=== PATIENT | male | born 1955 | race Hispanic/Latino ===

== ENCOUNTER 2016-12-05 13:42 | Outpatient (CLI) | payer OTHER ==
[2016-12-05] MEDS ORDERED: PROVENTIL IH ONE (13:58)
== END 2016-12-05 13:43 | disposition home or self-care (01) ==
LOC: PF 13:42
PROVIDERS: ATTEND Internal Medicine
DX: I50.9 Heart failure, unspecified (principal); I10 Essential (primary) hypertension; J43.9 Emphysema, unspecified
CPT/HCPCS: 94060; 94640

== ENCOUNTER 2019-07-26 16:04 | Inpatient (IN) | payer MEDICAID, OTHER ==
[2019-07-26] MEDS ORDERED: SODIUM CHLORIDE 0.9% 1000 ML IV SOLN IV ONE (17:22)
[2019-07-26] MEDS ORDERED: MORPHINE 4 MG/1 ML INJ IV ONE (17:26)
[2019-07-26] MEDS ORDERED: ACETAMINOPHEN 325 MG TAB PO ONE (17:26)
--- NOTE | 2019-07-26 17:26 | Emergency Department Report ---
ED General Adult HPI - General Chief complaint: Chest Pain Stated complaint: CHEST PAIN Time Seen by Provider: 07/26/19 17:13 Source: patient, EMS ( EMS documentation not available at time of chart dictation ), RN notes reviewed, old records reviewed Mode of arrival: Stretcher Limitations: Physical Limitation - History of Present Illness Initial comments: This is a 64-year-old gentleman. This patient is not known to this provider previously. He reports that he typically follows at [facility]. As per review of old medical records, he has a history of hypertension, alcohol abuse, multiple ischemic cardiac workups. As per documentation from March 2018, had a cardiac catheterization at [facility], which showed no significant coronary artery disease. In addition, admitted 2017, had a thallium stress test performed at [facility], which showed no acute ischemia. Today, the patient presents to the ER with a complaint of 2-3 days central chest pain, diarrhea, "too many times to count", generalized weakness, and nontraumatic left lower extremity pain, redness and swelling. Symptoms intermittent, although left flank pain is constant, getting worse, left flank pain increases with palpation and range of motion, and it decreases with rest. It does not radiate anywhere. The chest pain as central, it does not radiate to the back, arms and neck. There is no vomiting. There is positive fever. Positive diarrhea. Positive weakness. No recent antibiotic use. No sick contacts. -: Gradual, days(s) Location: chest, left, lower extremity Severity scale (0 -10): 10 Quality: other Consistency: other Improves with: other Worsens with: other - Related Data Allergies Allergy/AdvReac Type Severity Reaction Status Date / Time No Known Allergies Allergy Unverified 05/16/16 08:15 ED Review of Systems ROS: Stated complaint: CHEST PAIN Other details as noted in HPI Constitutional: fever, malaise, weakness Eyes: denies: eye discharge ENT: denies: epistaxis Respiratory: denies: wheezing Cardiovascular: chest pain Gastrointestinal: diarrhea Musculoskeletal: arthralgia, myalgia Skin: rash Neurological: weakness ED Past Medical Hx - Past Medical History Previous Medical History?: Yes Hx Hypertension: Yes Hx Heart Attack/AMI: Yes (x5) - Social History Smoking Status: Never Smoker Substance Use Type: None ED Physical Exam - General Limitations: No Limitations, Physical Limitation General appearance: alert, in distress, obese - Head Head exam: Present: atraumatic, normocephalic - Eye Eye exam: Present: normal appearance, EOMI. Absent: nystagmus - ENT ENT exam: Present: normal exam, normal orophraynx, mucous membranes moist, normal external ear exam - Neck Neck exam: Present: normal inspection, full ROM. Absent: tenderness, meningismus - Respiratory Respiratory exam: Present: normal lung sounds bilaterally. Absent: respiratory distress - Cardiovascular Cardiovascular Exam: Present: normal rhythm, tachycardia, normal heart sounds. Absent: systolic murmur, diastolic murmur, rubs, gallop - GI/Abdominal GI/Abdominal exam: Present: soft. Absent: distended, tenderness, guarding, rebound, rigid, pulsatile mass - Rectal Rectal exam: Present: deferred - Extremities Exam Extremities exam: Present: tenderness, other (2+ pulses noted in the bilateral upper, lower extremities. There is no long bone tenderness. Musculoskeletal compartments are soft. The pelvis is stable.). Absent: normal inspection (the left lower extremity is warm, red and tender. The compartments are tender. The compartments are soft. There is no palpable cord. There is a negative Homans sign.), calf tenderness - Back Exam Back exam: Present: normal inspection. Absent: tenderness, CVA tenderness (R), CVA tenderness (L), paraspinal tenderness, vertebral tenderness - Neurological Exam Neurological exam: Present: alert, other (there is no facial droop. The tongue is midline. Extraocular movements are intact bilaterally. Patient speaking in full complete sentences. Shoulder shrug is intact bilaterally. Hearing is grossly intact bilaterally. Visual acuity intact to finger counting and color perception at a close distance. 5/5 strength 4 extremities. Sensation intact to light touch in 4 extremities.). Absent: motor sensory deficit - Psychiatric Psychiatric exam: Present: anxious - Skin Skin exam: Present: warm, rash, erythema ED Course Vital Signs 07/26/19 07/26/19 07/26/19 16:12 16:28 19:25 Temperature 100.3 F H 97.7 F 99.1 F Pulse Rate 115 H 109 H 105 H Respiratory 18 20 19 Rate Blood Pressure 149/92 Blood Pressure 161/86 125/73 [Right] O2 Sat by Pulse 95 96 97 Oximetry - Reevaluation(s) Reevaluation #1: 07/26/19 17:58 Differential diagnosis, including but not limited to: Lower extremity ce llulitis, DVT, myositis, pneumonia, acute coronary syndrome, pulmonary embolism, enteritis/colitis Assessment and plan: 64-year-old gentleman with multiple complaints Complaint #1, nontraumatic left lower extremity pain, redness and swelling. Patient febrile and tachycardic. The lower extremity appears to be infected. Exam not suggestive of myositis or compartment syndrome at this time. The patient will be treated as for the sepsis pathway, with Tylenol, fluids and clindamycin. Complaint #2, chest pain: EKG reviewed and appreciated, appears to be morphologically unchanged from rider, as per close documentation from prior visits, patient's had extensive cardiac workups for cardiac risk stratification. Unlikely to be acute coronary syndrome, however, depending on ultrasound and d-dimer, we may have to obtain nuclear medicine study to evaluate for pulmonary embolism. Complaints #3, diarrhea: Abdomen soft and benign, with no rebound, guarding or peritoneal signs. No endorsement of nausea or vomiting. Thus far, no diarrhea on my examination. If he doesn't have diarrhea, we will send it off for analysis. We will recommend admission to the medical service for sepsis secondary to presumed left lower extremities cellulitis. Reevaluation #2: 07/26/19 19:34 X-rays negative for acute disease. D-dimer markedly elevated. DVT study is negative. Laboratory studies show impressive renal insufficiency, creatinine of 3.8. Additional laboratory studies ordered. Elevated troponin reviewed and appreciated. Uncertain if secondary to renal insufficiency and type II troponin leak, or secondary to atypical presentation of acute coronary syndrome. Pat ient will be admitted. Reevaluation #3: 07/26/19 20:13 Nuclear medicine study is pending at this time. Case presented to Hospital nurse practitioner, Davis Antonio, working in conjunction with hospitalist physician, Dr. Jay Smith The patient is accepted to the medical service. Reevaluation #4: 07/26/19 21:59 Nuclear medicine study is low probability for pulmonary embolus ED Medical Decision Making - Lab Data Result diagrams: 07/26/19 18:53 07/26/19 18:53 Vital Signs 07/26/19 07/26/19 16:12 16:28 Temperature 100.3 F H 97.7 F Pulse Rate 115 H 109 H Respiratory 18 20 Rate Blood Pressure 149/92 Blood Pressure 161/86 [Right] O2 Sat by Pulse 95 96 Oximetry Vital Signs 07/26/19 07/26/19 16:12 16:28 Temperature 100.3 F H 97.7 F Pulse Rate 115 H 109 H Respiratory 18 20 Rate Blood Pressure 149/92 Blood Pressure 161/86 [Right] O2 Sat by Pulse 95 96 Oximetry Lab Results 07/26/19 07/26/19 07/26/19 Range/Units 18:53 18:53 18:53 WBC 10.8 (4.5-11.0) K/mm3 RBC 4.47 (3.65-5.03) M/mm3 Hgb 13.9 (11.8-15.2) gm/dl Hct 41.4 (35.5-45.6) % MCV 92 (84-94) fl MCH 31 (28-32) pg MCHC 34 (32-34) % RDW 13.8 (13.2-15.2) % Plt Count 115 L (140-440) K/mm3 Lymph % (Auto) 4.3 L (13.4-35.0) % Willacy % (Auto) 7.0 (0.0-7.3) % Eos % (Auto) 0.2 (0.0-4.3) % Baso % (Auto) 0.2 (0.0-1.8) % Lymph # 0.5 L (1.2-5.4) K/mm3 Willacy # 0.7 (0.0-0.8) K/mm3 Eos # 0.0 (0.0-0.4) K/mm3 Baso # 0.0 (0.0-0.1) K/mm3 Seg Neutrophils % 88.3 H (40.0-70.0) % Seg Neutrophils # 9.5 H (1.8-7.7) K/mm3 APTT 33.8 (24.2-36.6) Sec. D-Dimer 1290.92 H (0-234) ng/mlDDU Sodium 136 L (137-145) mmol/L Potassium 3.1 L (3.6-5.0) mmol/L Chloride 98.1 (98-107) mmol/L Carbon Dioxide 22 (22-30) mmol/L Anion Gap 19 mmol/L BUN 55 H (9-20) mg/dL Creatinine 3.8 H (0.8-1.5) mg/dL Estimated GFR 16 ml/min BUN/Creatinine Ratio 14 % Glucose 130 H (75-100) mg/dL Lactic Acid (0.7-2.0) mmol/L Calcium 8.5 (8.4-10.2) mg/dL Magnesium 2.00 (1.7-2.3) mg/dL Total Bilirubin 1.30 H (0.1-1.2) mg/dL AST 18 (5-40) units/L ALT 15 (7-56) units/L Alkaline Phosphatase 78 (35-129) units/L Total Creatine Kinase 198 H (55-170) units/L Troponin T 0.034 H (0.00-0.029) ng/mL Total Protein 7.2 (6.3-8.2) g/dL Albumin 3.7 L (3.9-5) g/dL Albumin/Globulin Ratio 1.1 % 07/26/19 Range/Units 18:53 WBC (4.5-11.0) K/mm3 RBC (3.65-5.03) M/mm3 Hgb (11.8-15.2) gm/dl Hct (35.5-45.6) % MCV (84-94) fl MCH (28-32) pg MCHC (32-34) % RDW (13.2-15.2) % Plt Count (140-440) K/mm3 Lymph % (Auto) (13.4-35.0) % Willacy % (Auto) (0.0-7.3) % Eos % (Auto) (0.0-4.3) % Baso % (Auto) (0.0-1.8) % Lymph # (1.2-5.4) K/mm3 Willacy # (0.0-0.8) K/mm3 Eos # (0.0-0.4) K/mm3 Baso # (0.0-0.1) K/mm3 Seg Neutrophils % (40.0-70.0) % Seg Neutrophils # (1.8-7.7) K/mm3 APTT (24.2-36.6) Sec. D-Dimer (0-234) ng/mlDDU Sodium (137-145) mmol/L Potassium (3.6-5.0) mmol/L Chloride (98-107) mmol/L Carbon Dioxide (22-30) mmol/L Anion Gap mmol/L BUN (9-20) mg/dL Creatinine (0.8-1.5) mg/dL Estimated GFR ml/min BUN/Creatinine Ratio % Glucose (75-100) mg/dL Lactic Acid 1.00 (0.7-2.0) mmol/L Calcium (8.4-10.2) mg/dL Magnesium (1.7-2.3) mg/dL Total Bilirubin (0.1-1.2) mg/dL AST (5-40) units/L ALT (7-56) units/L Alkaline Phosphatase (35-129) units/L Total Creatine Kinase (55-170) units/L Troponin T (0.00-0.029) ng/mL Total Protein (6.3-8.2) g/dL Albumin (3.9-5) g/dL Albumin/Globulin Ratio % - EKG Data -: EKG Interpreted by Me Rate: tachycardia - EKG Data 07/26/19 18:01 EKG today shows a sinus tachycardia, 113 bpm, left axis deviation, left anterior fascicular block, left ventricular hypertrophy, QTC within normal limits, premature atrial contractions, premature ventricular contractions, incomplete right bundle branch block, T-wave abnormalities lateral leads, this EKG is abnormal, the EKG is not consistent with ST elevation myocardial infarction, appears to be grossly unchanged from prior 2018, with the exception of new-onset left axis deviation, this may be secondary to lead placement, more frequent premature ventricular contractions, and premature atrial contractions. - Radiology Data Radiology results: pending, report reviewed, image reviewed interpreted by me: X-ray the chest is negative for acute disease. X-ray of the left lower extremity is negative for acute disease. Print Report Referring Physician: SONYA SIMMS Patient Name: ANDRY GURROLA Date of : 1955 Sex: Male Report Date: 2019-07-26 Report Status: Finalized Findings [facility] [address] [place] [address] Vascular Lab Report Signed Patient: ANDRY GURROLA MR#: [id number] : 1955 Acct:[id number] Age/Sex: 64 / M ADM Date: 07/26/19 Loc: ED Attending Dr: Ordering Physician: SONYA SIMMS MD Date of Service: 07/26/19 Procedure(s): VL venous duplex LE LT Accession Number(s): [id number] cc: SNOYA SIMMS MD DUPLEX DOPPLER LOWER EXTREMITY VEINS, LEFT INDICATION: left leg pain swelling. TECHNIQUE: Duplex doppler imaging was performed through the veins of the left lower extremity using venous compression and other maneuvers. COMPARISON: None available. FINDINGS: Common Femoral vein: Negative. Superficial Femoral vein: Distal superficial femoral vein is not visualized. Accounting for this, negative. Popliteal vein: Negative. Calf veins: Not visualized. Additional findings: None. IMPRESSION: 1. No sonographic evidence for DVT in the left lower extremity. Signer Name: Cale Francisco MD Signed: 07/26/2019 6:44 PM Workstation Name: [id number] Transcribed By: Dictated By: Cale Francisco MD Electronically Authenticated By: Cale Francisco MD Signed Date/Time: 07/26/19 1844 Print Report Referring Physician: SONYA SIMMS Patient Name: ANDRY GURROLA Date of : 1955 Sex: Male Report Date: 2019-07-26 Report Status: Finalized Findings [facility] [address] [place] [address] XRay Report Signed Patient: ANDRY GURROLA MR#: [id number] : 1955 Acct:[id number] Age/Sex: 64 / M ADM Date: 07/26/19 Loc: ED Attending Dr: Ordering Physician: SONYA SIMMS MD Date of Service: 07/26/19 Procedure(s): XR tibia fibula 2V LT Accession Number(s): [id number] cc: SONYA SIMMS MD Fluoro Time In Minutes: LEFT TIBIA AND FIBULA 2 VIEWS. INDICATION / CLINICAL INFORMATION: left leg pain swelling COMPARISON: None available. FINDINGS: BONES / JOINT(S): No acute fracture or subluxation. No significant arthritis. SOFT TISSUES: Soft tissue swelling. ADDITIONAL FINDINGS: None. Signer Name: Grayson Shell MD Signed: 07/26/2019 6:03 PM Workstation Name: [id number] Transcribed By: ES Dictated By: Grayson Shell MD Electronically Authenticated By: Grayson Shell MD Signed Date/Time: 07/26/19 1803 t Report Referring Physician: SONYA SIMMS Patient Name: ANDRY GURROLA Date of : 1955 Sex: Male Report Date: 2019-07-26 Report Status: Finalized Findings [facility] [address] [place] [address] XRay Report Signed Patient: ANDRY GURROLA MR#: [id number] : 1955 Acct:[id number] Age/Sex: 64 / M ADM Date: 07/26/19 Loc: ED Attending Dr: Ordering Physician: SONYA SIMMS MD Date of Service: 07/26/19 Procedure(s): XR chest 1V ap Accession Number(s): [id number] cc: SONYA SIMMS MD Fluoro Time In Minutes: CHEST 1 VIEW INDICATION: cp fever. COMPARISON: 04/18/2018. FINDINGS: Support devices: None. Heart: Within normal limits. Lungs/Pleura: No acute air space or interstitial disease. Additional findings: None. IMPRESSION: No acute abnormality. Signer Name: Grayson Shell MD Signed: 07/26/2019 6:02 PM Workstation Name: [id number] Transcribed By: RAMILA Dictated By: Grayson Shell MD Electronically Authenticated By: Grayson Shell MD Signed Date/Time: 07/26/19 180 Critical care attestation.: If time is entered above; I have spent that time in minutes in the direct care of this critically ill patient, excluding procedure time. ED Disposition Clinical Impression: Sepsis, Acute chest pain, History of diarrhea, SHAUNA (acute kidney injury), Hypokalemia Disposition: OP ADMIT IP TO THIS HOSP Is pt being admited?: Yes Does the pt Need Aspirin: Yes Condition: Good Instructions: Chest Pain (ED) Referrals: PRIMARY CARE, [Primary Care Provider] - 3-5 Days
[2019-07-26] MEDS ORDERED: CLINDAMYCIN 600 MG/50 mL 600 MG/50 ML BAG IV SCH (18:00)
[2019-07-26] MEDS ORDERED: ASPIRIN 81 MG TAB CHEW PO ONE (18:02)
--- NOTE | 2019-07-26 18:06 | XRay Report ---
CHEST 1 VIEW INDICATION: cp fever. COMPARISON: 04/18/2018. FINDINGS: Support devices: None. Heart: Within normal limits. Lungs/Pleura: No acute air space or interstitial disease. Additional findings: None. IMPRESSION: No acute abnormality. Signer Name: Grayson Shell MD Signed: 07/26/2019 6:02 PM Workstation Name: [id number]
--- NOTE | 2019-07-26 18:08 | XRay Report ---
LEFT TIBIA AND FIBULA 2 VIEWS. INDICATION / CLINICAL INFORMATION: left leg pain swelling COMPARISON: None available. FINDINGS: BONES / JOINT(S): No acute fracture or subluxation. No significant arthritis. SOFT TISSUES: Soft tissue swelling. ADDITIONAL FINDINGS: None. Signer Name: Grayson Shell MD Signed: 07/26/2019 6:03 PM Workstation Name: [id number]
--- NOTE | 2019-07-26 18:48 | Vascular Lab Report ---
DUPLEX DOPPLER LOWER EXTREMITY VEINS, LEFT INDICATION: left leg pain swelling. TECHNIQUE: Duplex doppler imaging was performed through the veins of the left lower extremity using venous compr ession and other maneuvers. COMPARISON: None available. FINDINGS: Common Femoral vein: Negative. Superficial Femoral vein: Distal superficial femoral vein is not visualized. Accounting for this, neg ative. Popliteal vein: Negative. Calf veins: Not visualized. Additional findings: None. IMPRESSION: 1. No sonographic evidence for DVT in the left lower extremity. Signer Name: Cale Francisco MD Signed: 07/26/2019 6:44 PM Workstation Name: [id number]
[2019-07-26 19:10] LABS: Basophils % (Auto) 0.2 % (0.0-1.8); Eosinophils % (Auto) 0.2 % (0.0-4.3); Hematocrit 41.4 % (35.5-45.6); Hemoglobin 13.9 gm/dl (11.8-15.2); Lymphocytes # (Auto) 0.5 K/mm3 (1.2-5.4); Lymphocytes % (Auto) 4.3 % (13.4-35.0); Mean Corpuscular HGB Conc 34 % (32-34); Mean Corpuscular Volume 92 fl (84-94); Monocytes # (Auto) 0.7 K/mm3 (0.0-0.8); Platelet Count 115 K/mm3 (140-440); Red Blood Count 4.47 M/mm3 (3.65-5.03); Red Cell Distribution Width 13.8 % (13.2-15.2)
[2019-07-26 19:24] LABS: Partial Thromboplastin Time 33.8 Sec. (24.2-36.6)
[2019-07-26 19:33] LABS: Albumin 3.7 g/dL (3.9-5); Calcium 8.5 mg/dL (8.4-10.2)
[2019-07-26] MEDS ORDERED: POTASSIUM CHLORIDE ER 20 MEQ TAB PO ONE (19:33)
[2019-07-26 19:49] LABS: INR 1.12 (0.87-1.13)
[2019-07-26 19:50] LABS: Bilirubin,Urine NEG (Negative); Blood,Urine MOD (Negative); Color,Urine Yellow (Yellow); Mucus,Urine FEW /HPF
[2019-07-26 20:25] LABS: Osmolality,Urine 359 Mosm/kg
[2019-07-26] MEDS ORDERED: traMADol 50 MG TAB PO ONE (20:28)
[2019-07-26 20:36] LABS: Amphetamine Screen,Urine PRESUMPTIVE NEGATIVE; Benzodiazepines Screen,Urine PRESUMPTIVE NEGATIVE; Cannabinoid Screen,Urine PRESUMPTIVE NEGATIVE; Cocaine Screen,Urine PRESUMPTIVE NEGATIVE; Creatinine,Urine 167.4 mg/dL (0.1-20.0); Methadone Screen,Urine PRESUMPTIVE NEGATIVE; Opiate Screen,Urine PRESUMPTIVE NEGATIVE
[2019-07-26 20:43] LABS: Chol/HDL Ratio 4.51 %
[2019-07-26] MEDS ORDERED: ONDANSETRON 4 MG/2 ML INJ IV PRN (20:43)
[2019-07-26] MEDS ORDERED: MORPHINE 2 MG/1 ML INJ IV PRN (20:50)
[2019-07-26] MEDS ORDERED: SODIUM CHLORIDE 0.9% 1000 ML 1,000 ML IV SCH (21:00)
[2019-07-26] MEDS ORDERED: HEPARIN 10,000 UNITS/10 ML VIAL IV ONE ×2 (21:42→22:00)
--- NOTE | 2019-07-26 21:51 | Nuclear Medicine Report ---
NUCLEAR MEDICINE VENTILATION/PERFUSION LUNG SCAN INDICATION: Chest pain. Elevated d-dimer. TECHNIQUE: 14 mCi of Xe-133 were given by inhalation. 5 mCi of Tc-99m MAA were given by IV. COMPARISON: Chest radiograph performed today. FINDINGS: VENTILATION: No significant ventilation defects. PERFUSION: No significant perfusion defects. ADDITIONAL FINDINGS: None. IMPRESSION: Low probability for pulmonary embolism. Signer Name: Luis Douglas MD Signed: 07/26/2019 9:46 PM Workstation Name: [id number]
[2019-07-26] MEDS ORDERED: HEPARIN/ 0.45% NACL DRIP 25,000 UNIT/500 ML BAG IV SCH (22:00)
[2019-07-26] MEDS ORDERED: HEPARIN 5,000 UNIT/1 ML VIAL SUB-Q SCH (22:00)
[2019-07-26] MEDS ORDERED: VANCOMYCIN PHARMACY TO DOSE IV SCH (22:00)
[2019-07-26] MEDS ORDERED: DOCUSATE SODIUM 100 MG CAP ONE (22:21)
[2019-07-26] MEDS ORDERED: SODIUM CHLORIDE 0.9% 1000 ML 1,000 ML ONE ×2 (22:23→22:34)
[2019-07-26] MEDS: DOCUSATE SODIUM 100 MG CAP PO SCH (22:28)
[2019-07-26] MEDS ORDERED: VANCOMYCIN 2,000 MG in SODIUM CHLORIDE 0.9% 500 ML 500 ML IV ONE (22:30)
[2019-07-26] MEDS ORDERED: HYDROmorphone 1 MG/1 ML INJ ONE (22:35)
[2019-07-26] MEDS: HYDROmorphone 1 MG/1 ML INJ IV PRN (22:54)
[2019-07-26] MEDS: POTASSIUM CHLORIDE 10 MEQ 10 MEQ/100 ML BAG IV SCH (22:54)
[2019-07-26] MEDS: SODIUM CHLORIDE 0.9% 1000 ML 1,000 ML IV SCH (23:31)
[2019-07-27] MEDS: POTASSIUM CHLORIDE 10 MEQ 10 MEQ/100 ML BAG IV SCH (00:22)
[2019-07-27] MEDS: AMPICILLIN/SULBACTA 1.5GM/50ML 1.5 GM/50 ML BAG IV SCH ×3 (01:54→12:40)
[2019-07-27] MEDS: HYDROmorphone 1 MG/1 ML INJ IV PRN ×6 (02:10→21:09)
[2019-07-27 03:11] LABS: Basophils % (Auto) 0.1 % (0.0-1.8); Hematocrit 39.1 % (35.5-45.6); Lymphocytes # (Auto) 0.9 K/mm3 (1.2-5.4); Lymphocytes % (Auto) 5.5 % (13.4-35.0); Mean Corpuscular HGB Conc 33 % (32-34); Mean Corpuscular Volume 92 fl (84-94); Monocytes # (Auto) 1.4 K/mm3 (0.0-0.8); Monocytes % (Auto) 8.4 % (0.0-7.3); Platelet Count 120 K/mm3 (140-440); Red Blood Count 4.26 M/mm3 (3.65-5.03); Red Cell Distribution Width 13.9 % (13.2-15.2)
[2019-07-27 03:27] LABS: INR 1.15 (0.87-1.13)
[2019-07-27 03:28] LABS: Partial Thromboplastin Time 38.3 Sec. (24.2-36.6)
[2019-07-27 03:34] LABS: Creatine Kinase MB 4.6 ng/mL (0.0-4.0)
--- NOTE | 2019-07-27 06:13 | History and Physical Report ---
CHIEF COMPLAINT: Chest pain. Other complaint include pain and swelling in the left lower extremity. HISTORY OF PRESENT ILLNESS: The patient is a 64-year-old male who presented to the Emergency Room complaining about chest pain. The patient also complained about pain and swelling in the left lower extremity and generalized weakness. The patient described the chest pain as intermittent and said that the pain is located in the retrosternal area, does not radiate and is associated with nausea, but no vomiting. Pain is also associated with shortness of breath, but no diaphoresis and no dizziness. The patient said that swelling in the left leg started over the last 24-48 hours and denied any history of trauma and said that he knows that he scratches his skin most times, but denied any history of insect bite. Also, the patient denied history of fever or chills. PAST MEDICAL HISTORY: Pertinent for hypertension. Also, the patient has past medical history of coronary artery disease, status post myocardial infarction. PAST SURGICAL HISTORY: Unremarkable. FAMILY HISTORY: Noncontributory. SOCIAL HISTORY: The patient does not smoke, does not drink alcohol and does not use illicit drugs. MEDICATIONS: The patient's home medications are not known. ALLERGIES: There are no known drug allergies. REVIEW OF SYSTEMS: CONSTITUTIONAL: There is a history of fever and chills, but no orthopnea. HEENT: There is no headache or sore throat. CARDIOVASCULAR SYSTEM: Chest pain is present. No orthopnea. RESPIRATORY SYSTEM: There is shortness of breath and no cough. GASTROINTESTINAL SYSTEM: There is nausea, but no vomiting, no abdominal pain, diarrhea or constipation. NEUROLOGICAL SYSTEM: There is no numbness, no dizziness, no altered mental status. MUSCULOSKELETAL SYSTEM: There is pain and swelling in the left leg. DERMATOLOGICAL SYSTEM: There is redness of the left leg, but no rashes. GENITOURINARY SYSTEM: There is no dysuria, hematuria, or flank pain. Rest of system review is normal. PHYSICAL EXAMINATION: GENERAL: At the time of exam, the patient was found to be alert, oriented x 3 and not in acute distress. VITAL SIGNS: Shows temperature of 100.3 degrees Fahrenheit, pulse of 115, respirations 18, blood pressure 149/92, O2 sat of 95% on room air. HEENT: Showed pupils to be equal, round, reactive to light and accommodating. Extraocular muscles are intact. NECK: Supple with no JVD or carotid bruit. CARDIOVASCULAR SYSTEM: Showed normal first and second heart sounds with no gallops or murmurs. RESPIRATORY SYSTEM: Show good air entry on both sides of the lungs with no abnormal breath sounds. GASTROINTESTINAL SYSTEM: Show abdomen to be full, soft, nontender with no organomegaly or rigidity. NEUROLOGIC: Shows no focal deficit. MUSCULOSKELETAL: Shows swelling in the left leg, which is tender to touch with normal neurovascular function. DERMATOLOGICAL SYSTEM: Shows redness of the left leg with no skin rashes. GENITOURINARY: Shows no costovertebral angle tenderness. PERTINENT LABORATORY AND IMAGING STUDIES: The patient had venous Doppler ultrasound of the left lower extremity that shows no evidence of DVT. Also, the patient had chest x-ray done that came back showing no acute cardiopulmonary lesion. The patient also had x-ray of the left tibia and fibula done that shows no acute fracture or subluxation that shows soft tissue swelling. The patient also had pulmonary perfusion test done because of elevated D-dimer that shows low probability for pulmonary embolism. Lab results, the patient's CBC showed normal white count, normal hemoglobin and normal hematocrit. The patient has low platelet count of 115. The patient's CBC differential showing elevated segmented neutrophil count of 88.3%. The patient's coagulation studies show high D-dimer of 1290. The patient's chemistry showed low sodium level of 136 with low potassium level of 3.1, elevated BUN of 55 and elevated creatinine of 3.8 and patient's total bilirubin is slightly elevated with a value of 1.3 and patient's troponin level is high with a value of 0.034. Rest of chemistry was unremarkable. The patient's urinalysis showed yellow, slightly cloudy urine with elevated urine WBC of 9 and negative urine leukocyte esterase with no bacteria found. The patient's toxicology screen was unremarkable. DIAGNOSES: 1. Non-ST elevation myocardial infarction. 2. Sepsis. 3. Left lower extremity cellulitis. 4. Acute kidney injury. PLAN OF CARE: 1. The patient will be admitted to telemetry. 2. The patient will have serial cardiac enzymes involving troponin, total CK, and CK-MB checked every 6 hours x 2 more levels. 3. The patient will have Cardiology consult with Dr. Chuy Mcclure back because of NSTEMI. 4. The patient will have Nephrology consult with Dr. Renteria for management of acute kidney injury. 5. The patient will have Infectious Disease consult with Dr. Latham for management of sepsis due to cellulitis of the lower extremity. 6. The patient will be on IV normal saline running at 125 mL an hour, having received some fluid boluses in the Emergency Room. 7. The patient will be on IV Unasyn 1.5 g q.6 hours. 8. The patient will be on IV vancomycin with pharmacy to dose for management of cellulitis and sepsis. 9. The patient will be on IV morphine 2 mg every 4 hours as needed for pain and IV Zofran 4 mg every 8 hours as needed for nausea and vomiting. 10. The patient will be on IV heparin per protocol for NSTEMI. 11. The patient will be on nitro paste half inch to anterior chest wall q.i.d. and will be on sublingual nitroglycerin 0.4 mg every 5 minutes as needed for breakthrough chest pain. 12. The patient will be on aspirin 325 mg by mouth daily and will be on Tylenol 650 mg by mouth every 4 hours for fever and headache. 13. The patient will be on oxygen by nasal cannula at 2 liters per minute. JOB# [id number] OCN/NTS
[2019-07-27 07:44] LABS: Creatine Kinase MB 3.5 ng/mL (0.0-4.0)
[2019-07-27] MEDS ORDERED: HEPARIN 10,000 UNITS/10 ML VIAL IV ONE (08:30)
[2019-07-27] MEDS: DOCUSATE SODIUM 100 MG CAP PO SCH (11:36)
[2019-07-27] MEDS: ASPIRIN 325 MG TAB PO SCH (11:36)
--- NOTE | 2019-07-27 12:04 | Progress Note ---
Assessment and Plan - Patient Problems (1) Cellulitis and abscess of left leg Current Visit: Yes Status: Acute Plan to address problem: was cellulitis abscess left leg tender painful red hot swollen. Follow blood culture data continue local wound care and IV antibiotics with Unasyn. Her [id number] pain control. (2) SHAUNA (acute kidney injury) Current Visit: Yes Status: Acute Plan to address problem: Acute kidney injury appears to be new. May be acute on chronic insufficiency. Patient stated he had some issues with kidney quite some time ago. Could be prerenal azotemia. Nephrology consult pending. Gentle hydration for now. (3) Acute chest pain Current Visit: Yes Status: Acute Plan to address problem: Extensive workup for chest pain. Patient states he did not have any chest pain. No further cardiac workup indicated. (4) History of diarrhea Current Visit: Yes Status: Acute Plan to address problem: We'll check stool for C. difficile. (5) Hypokalemia Current Visit: Yes Status: Acute Plan to address problem: correct as required History Interval history: Patient this a.m. presents with left lower lobe swelling. And acute renal failure on physical exam. is 64 years old originally presented with chest pain has had an extensive cardiac workup including April 16 normal catheterization and also recent normal stress test. Patient also had a remarkable CTA here. Patient had ultrasound negative for DVT chest x-ray unremarkable Legatrin on remarkable CTA unremarkable. Patient currently not complaining of any chest pain at all. Stated he did not have chest pain overnight is mostly leg pain. Patient does have extensive left leg cellulitis. Hospital course also complicated by diarrhea. Hospitalist Physical - Constitutional Vitals: Temp Pulse Resp BP Pulse Ox 99.6 F 95 H 18 176/81 96 07/27/19 04:38 07/27/19 04:36 07/27/19 07:22 07/27/19 04:36 07/27/19 09:48 General appearance: Present: no acute distress - EENT Eyes: Present: PERRL, EOM intact ENT: hearing intact, clear oral mucosa, dentition normal - Neck Neck: Present: supple, normal ROM - Respiratory Respiratory effort: normal Respiratory: bilateral: CTA - Cardiovascular Rhythm: regular - Extremities Extremities: no ischemia, pulses intact, pulses symmetrical Extremity abnormal: erythema, tenderness, other (left extremity edematous with dry skin cellulitic tender to touch edema and erythema.) Peripheral Pulses: within normal limits - Abdominal General gastrointestinal: soft, non-tender, non-distended, normal bowel sounds, no hepatomegaly, no splenomegaly - Integumentary Integumentary: Present: clear, warm, dry - Psychiatric Psychiatric: appropriate mood/affect, intact judgment & insight, memory intact - Neurologic Neurologic: CNII-XII intact, moves all extremities Results - Labs CBC & Chem 7: 07/27/19 02:28 07/27/19 02:28 Labs: Laboratory Last Values WBC 16.1 K/mm3 (4.5-11.0) H 07/27/19 02: RBC 4.26 M/mm3 (3.65-5.03) 07/27/19 02: Hgb 13.0 gm/dl (11.8-15.2) 07/27/19 02: Hct 39.1 % (35.5-45.6) 07/27/19 02: MCV 92 fl (84-94) 07/27/19 02: MCH 31 pg (28-32) 07/27/19 02: MCHC 33 % (32-34) 07/27/19 02: RDW 13.9 % (13.2-15.2) 07/27/19 02: Plt Count 120 K/mm3 (140-440) L 07/27/19 02: Lymph % (Auto) 5.5 % (13.4-35.0) L 07/27/19 02: [place] % (Auto) 8.4 % (0.0-7.3) H 07/27/19 02: Eos % (Auto) 0.0 % (0.0-4.3) 07/27/19 02: Baso % (Auto) 0.1 % (0.0-1.8) 07/27/19 02: Lymph # 0.9 K/mm3 (1.2-5.4) L 07/27/19 02: [place]eman # 1.4 K/mm3 (0.0-0.8) H 07/27/19 02:28 Eos # 0.0 K/mm3 (0.0-0.4) 07/27/19 02:28 Baso # 0.0 K/mm3 (0.0-0.1) 07/27/19 02:28 Seg Neutrophils % 86.0 % (40.0-70.0) H 07/27/19 02:28 Seg Neutrophils # 13.8 K/mm3 (1.8-7.7) H 07/27/19 02:28 PT 14.4 Sec. (12.2-14.9) 07/27/19 02:28 INR 1.15 (0.87-1.13) H 07/27/19 02:28 APTT 38.3 Sec. (24.2-36.6) H 07/27/19 02:28 1290.92 ng/mlDDU (0-234) H 07/26/19 18:53 Heparin Anti-Xa Level < 0.10 U.I./ml (0.3-0.7) L 07/27/19 06:35 Sodium 136 mmol/L (137-145) L 07/27/19 02:28 Potassium 3.6 mmol/L (3.6-5.0) 07/27/19 02:28 Chloride 99.2 mmol/L (98-107) 07/27/19 02:28 Carbon Dioxide 22 mmol/L (22-30) 07/27/19 02:28 18 mmol/L 07/27/19 02:28 BUN 51 mg/dL (9-20) H 07/27/19 02:28 3.5 mg/dL (0.8-1.5) H 07/27/19 02:28 Estimated GFR 18 ml/min 07/27/19 02:28 15 % 07/27/19 02:28 Glucose 128 mg/dL (75-100) H 07/27/19 02:28 Lactic Acid 0.70 mmol/L (0.7-2.0) 07/26/19 19:51 11.0 mg/dL (3.5-7.6) H 07/26/19 19:40 Calcium 8.0 mg/dL (8.4-10.2) L 07/27/19 02:28 Magnesium 2.00 mg/dL (1.7-2.3) 07/26/19 18:53 1.30 mg/dL (0.1-1.2) H 07/26/19 18:53 AST 18 units/L (5-40) 07/26/19 18:53 ALT 15 units/L (7-56) 07/26/19 18:53 78 units/L (35-129) 07/26/19 18:53 166 units/L (55-170) 07/27/19 06:35 CK-MB (CK-2) 3.5 ng/mL (0.0-4.0) 07/27/19 06:35 CK-MB (CK-2) Rel Index 2.1 (0-4) 07/27/19 06:35 0.021 ng/mL (0.00-0.029) 07/27/19 06:35 7.2 g/dL (6.3-8.2) 07/26/19 18:53 3.7 g/dL (3.9-5) L 07/26/19 18:53 1.1 % 07/26/19 18:53 Triglycerides 192 mg/dL (2-149) H 07/26/19 18:53 Cholesterol 122 mg/dL (50-199) 07/26/19 18:53 48 mg/dL (50-130) L 07/26/19 18:53 27 mg/dL (40-59) L 07/26/19 18:53 4.51 % 07/26/19 18:53 TSH 0.529 mlU/mL (0.270-4.200) 07/26/19 19:40 Yellow (Yellow) 07/26/19 19:20 Slightly-cloudy (Clear) 07/26/19 19:20 5.0 (5.0-7.0) 07/26/19 19:20 Ur Specific [place] 1.013 (1.003-1.030) 07/26/19 19:20 100 mg/dl mg/dL (Negative) 07/26/19 19:20 Neg mg/dL (Negative) 07/26/19 19:20 Neg mg/dL (Negative) 07/26/19 19:20 Mod (Negative) 07/26/19 19:20 Neg (Negative) 07/26/19 19:20 Neg (Negative) 07/26/19 19:20 2.0 mg/dL (<2.0) 07/26/19 19:20 Ur Leukocyte Esterase Neg (Negative) 07/26/19 19:20 9.0 /HPF (0.0-6.0) H 07/26/19 19:20 1.0 /HPF (0.0-6.0) 07/26/19 19:20 U Epithel Cells (Auto) < 1.0 /HPF (0-13.0) 07/26/19 19:20 Few /HPF 07/26/19 19:20 359 Mosm/kg 07/26/19 19:34 167.4 mg/dL (0.1-20.0) H 07/26/19 19:34 38 mmol/L 07/26/19 19:34 Presumptive negative 07/26/19 19:34 Presumptive negative 07/26/19 19:34 Ur Barbiturates Screen Presumptive negative 07/26/19 19:34 Ur Phencyclidine Scrn Presumptive negative 07/26/19 19:34 Ur Amphetamines Screen Presumptive negative 07/26/19 19:34 U Benzodiazepines Scrn Presumptive negative 07/26/19 19:34 Presumptive negative 07/26/19 19:34 U Marijuana (THC) Screen Presumptive negative 07/26/19 19:34 Disclamer 07/26/19 19:34 - Imaging and Cardiology EKG: report reviewed Chest x-ray: report reviewed CT scan - chest: report reviewed Active Medications - Current Medications Current Medications: Generic Name Dose Route Start Last Admin Trade Name Freq PRN Reason Stop Dose Admin Acetaminophen 650 mg 07/26/19 20:43 Tylenol PO Q4H PRN Pain MILD(1-3)/Fever >100.5/FLOOD Aspirin 325 mg 07/27/19 10:00 07/27/19 11:36 Aspirin PO 325 mg QDAY ELSA Administration Docusate Sodium 100 mg 07/26/19 22:00 07/27/19 11:36 Colace PO 100 mg BID ELSA Administration Hydromorphone HCl 0.5 mg 07/26/19 20:50 07/27/19 11:36 Dilaudid IV 0.5 mg Q3H PRN Administration Pain , Severe (7-10) Ampicillin Sodium/Sulbactam Sodium 1.5 gm in 50 mls @ 100 mls/hr 07/27/19 00:00 07/27/19 06:03 Unasyn/Ns 1.5 Gm/50 Ml IV 100 mls/hr Q6HR ELSA Administration Protocol Heparin Sodium/Sodium Chloride 25,000 unit in 500 mls @ 20 mls/hr 07/26/19 22:00 07/27/19 07:57 Heparin/ 0.45% Nacl-25,000 Unit/500 Ml IV 1,350 units/hr TITRATE ELSA 27 mls/hr Titration Protocol 1,000 UNITS/HR Sodium Chloride 1,000 mls @ 125 mls/hr 07/26/19 22:00 07/26/19 23:31 Nacl 0.9% 1000 Ml IV 125 mls/hr DIRECT ELSA Administration Nitroglycerin 0.5 inch 07/27/19 06:00 Nitro-Bid 2% TP QIDNTG ELSA Protocol Ondansetron HCl 4 mg 07/26/19 20:43 Zofran IV Q6H PRN Nausea And Vomiting Sodium Chloride 10 ml 07/26/19 22:00 07/27/19 11:36 Sodium Chloride Flush Syringe 10 Ml IV 10 ml BID ELSA Administration Sodium Chloride 10 ml 07/26/19 20:43 Sodium Chloride Flush Syringe 10 Ml IV PRN PRN LINE FLUSH
[2019-07-27] MEDS: NITROGLYCERIN 2% OINT 1 GM TP SCH ×3 (12:23→17:07)
--- NOTE | 2019-07-27 13:31 | Consultation ---
CARDIOLOGY EVALUATION REFERRING PHYSICIAN: Dr. Randy Ochoa MD. REASON FOR EVALUATION: Chest pain. HISTORY OF PRESENT ILLNESS: The patient is a 64-year-old gentleman who came to the Emergency Room with multiple complaints. Even though he complained about chest discomfort when in the Emergency Room, at present his main complaint is left leg pain and swelling as well as headache. Chest pain itself is described as a central chest discomfort, very nondescript and unrelated to any activity. This has been bothering him for the last couple of days. The patient has no previous myocardial infarction or significant coronary artery disease. He had a cardiac catheterization done in 03/2018 and had no significant coronary artery disease. Subsequently, he had a nuclear stress test at [facility], again showed no ischemia. His chest pain itself is not typical. The patient is known to have a longstanding history of hypertension, alcohol abuse and ?pain medication use. REVIEW OF SYSTEMS: HEAD, EYES, EARS, NOSE, AND THROAT: The patient complains about headaches. ENDOCRINE: No history of diabetes. GASTROINTESTINAL: No abdominal pain, nausea, vomiting today; however, he apparently had diarrhea recently. GENITOURINARY: No symptoms. LOCOMOTOR: Left lower extremity pain and swelling. CENTRAL NERVOUS SYSTEM: No history of cerebrovascular accident, convulsive disorder, or syncope. HEME/ONC: No symptoms. PERSONAL HISTORY: Nonsmoker and drinks alcohol fairly regularly. The emergency record documents history of myocardial infarction; however, the patient is not sure if he ever had 1 and as mentioned earlier, cardiac catheterization about a year ago reveals normal coronary anatomy. PHYSICAL EXAMINATION: GENERAL: Adult overweight gentleman, in no acute distress. HEAD, EYES, EARS, NOSE AND THROAT: Unremarkable. NECK: Supple. No thyromegaly. Both carotids are palpable and equal. No bruits. CHEST: Symmetrical. LUNGS: Essentially clear. HEART: S1 and S2 are heard well. No S3. ABDOMEN: Obese, nontender, no hepatosplenomegaly. EXTREMITIES: Swelling and tenderness of the left lateral leg is noted. Right leg appears to be normal. IMAGING: EKG shows sinus rhythm with occasional PVCs, left ventricular hypertrophy with associated ST-T abnormalities. LABORATORY DATA: WBC 16.1, hemoglobin 13, hematocrit 39.1. INR 1.15. Sodium 136, potassium 3.6, blood sugar 128, BUN 51, creatinine 3.5, magnesium level is normal. Bilirubin 1.3. Troponin 0.034, 0.031, and 0.021. Total cholesterol 122, LDL 48, HDL 27. TSH 0.529. IMPRESSION: 1. Chest pain, somewhat atypical with mild elevation of the troponin; however, the patient had cardiac workup within the year, including a nuclear stress test, which was negative and cardiac catheterization that showed normal coronary anatomy. EKG shows no acute abnormalities. PLAN: 1. At this time is plan to continue monitoring and following with you. 2. Cellulitis of the left leg. The patient is currently on intravenous antibiotics. 3. Hypertension. 4. Renal failure. 5. Abnormal D-dimer and negative nuclear study for pulmonary embolism. The patient is seen for cardiac evaluation. In view of his recent multiple testings and as the patient himself is not having significant pain at this time and his main concern seems to be getting pain medications for his left leg pain. The patient appears to have cellulitis and this is being managed with intravenous antibiotics. The patient will be followed closely along with you. Thank you, Dr. Ochoa for allowing me to participate in the care of this gentleman. JOB# [id number] SERA/NTS MTDD
--- NOTE | 2019-07-27 14:25 | Consultation ---
History of Present Illness - Reason for Consult Consult date: 07/27/19 acute renal failure Requesting physician: JENN MENDES - History of Present Illness This is a 64 yo AAM with past medical history of hypertension, CAD who presents to [facility] ER with complaints, severe pain and swelling at LLE, along with generalized weakness. pt was found to have LLE cellulitis, and admitted for IV ABXs treatment. Labs showed elevated BUN/Cr at 55/3.8mg/dl for which renal consult is requested. Pt denies fever, chills, n/v/d, CP, palpitations, dysuria, abd pain, diarrhea, denies recent trauma, insect bites. Pt is not aware of any previous renal disease, however reports chronic NSAIDs use, was taking ibuprofen on a daily basis for the last year. Past History Past Medical History: CAD, hypertension Past Surgical History: No surgical history Social history: no significant social history. denies: smoking, alcohol abuse, prescription drug abuse, IV drug use Family history: no significant family history Medications and Allergies Allergies Allergy/AdvReac Type Severity Reaction Status Date / Time No Known Allergies Allergy Unverified 05/16/ 08:15 Active Meds: Active Medications Acetaminophen (Tylenol) 650 mg PO Q4H PRN PRN Reason: Pain MILD(1-3)/Fever >100.5/FLOOD Aspirin (Aspirin) 325 mg PO QDAY [facility] Last Admin: 07/27/19 11:36 Dose: 325 mg Documented by: Hydromorphone HCl (Dilaudid) 0.5 mg IV Q3H PRN PRN Reason: Pain , Severe (7-10) Last Admin: 07/27/19 11:36 Dose: 0.5 mg Documented by: Ampicillin Sodium/Sulbactam Sodium (Unasyn/Ns 1.5 Gm/50 Ml) 1.5 gm in 50 mls @ 100 mls/hr IV Q6HR [facility]; Protocol Last Admin: 07/27/19 12:40 Dose: 100 mls/hr Documented by: Sodium Chloride (Nacl 0.9% 1000 Ml) 1,000 mls @ 125 mls/hr IV DIRECT ELSA Last Admin: 07/26/19 23:31 Dose: 125 mls/hr Documented by: Nitroglycerin (Nitro-Bid 2%) 0.5 inch TP QIDNTG [facility]; Protocol Last Admin: 07/27/19 13:45 Dose: Not Given Documented by: Ondansetron HCl (Zofran) 4 mg IV Q6H PRN PRN Reason: Nausea And Vomiting Sodium Chloride (Sodium Chloride Flush Syringe 10 Ml) 10 ml IV BID ELSA Last Admin: 07/27/19 11:36 Dose: 10 ml Documented by: Sodium Chloride (Sodium Chloride Flush Syringe 10 Ml) 10 ml IV PRN PRN PRN Reason: LINE FLUSH Review of Systems All systems: negative Constitutional: weakness Musculoskeletal: other (LLE pain, swelling, redness ) Integumentary: redness Exam - Vital Signs Vital signs: Vital Signs Temp Pulse Resp BP Pulse Ox 100.3 F H 115 H 18 149/92 95 07/26/19 16:12 07/26/19 16:12 07/26/19 16:12 07/26/19 16:12 07/26/19 16:12 - General Appearance General appearance: well-developed, well-nourished, appears stated age EENT: ATNC, PERRL, mucous membranes moist Neck: Present: neck supple Respiratory: Clear to Ascultation Heart: regular, S1S2 Gastrointestinal: Present: normoactive bowel sounds Integumentary: no rash, other (+ LLE edema ) Neurologic: no focal deficit, alert and oriented x3, strength 5/5, CN 3-12 int act Psychiatric: mood/affect appropriate, cooperative Results - Lab Results 07/27/19 02:28 07/27/19 02:28 Most recent lab results Calcium 8.0 mg/dL (8.4-10.2) L 07/27/19 02:28 Magnesium 2.00 mg/dL (1.7-2.3) 07/26/19 18:53 167.4 mg/dL (0.1-20.0) H 07/26/19 19:34 38 mmol/L 07/26/19 19:34 Assessment and Plan - Patient Problems (1) SHAUNA (acute kidney injury) Current Visit: Yes Status: Acute Plan to address problem: SHAUNA is most likely secondary to pre-renal azotemia in the setting of LLE cellulitis. FeNA < 1%. cont IV NS at 125ml/hr. check renal US to rule out obstructive nephropathy and other structural disease, to assess kidney size. Avoid further nephrotoxins, NSAIDs, IV contrast. Will monitor lytes/renal parameters closely and make further recommendations. (2) Cellulitis and abscess of left leg Current Visit: Yes Status: Acute Plan to address problem: cont IV ABXs with vanco/ampicillin, dose for current eGFR < 20mls/min (3) Hypokalemia Current Visit: Yes Status: Acute Plan to address problem: K supplementation with KDur (4) Essential (primary) hypertension Current Visit: Yes Status: Acute Plan to address problem: will start amlodipine 5mg po qd for BP control
[2019-07-27] MEDS: amLODIPine 5 MG TAB PO SCH (14:50)
[2019-07-27] MEDS: SODIUM CHLORIDE 0.9% 1000 ML 1,000 ML IV SCH (14:50)
--- NOTE | 2019-07-27 15:04 | Consultation ---
History of Present Illness - Reason for Consult Consult date: 07/27/19 - History of Present Illness 64 yo M PMhx HTN, EtOH abuse admitted with chest pain. he notes the symptoms began 2-3 days prior to admission, as well as diarrhea. He has had these episodes of chest pain an innumerable amount of times, and has been worked up extensively with no cause found. He also complains of LLE pain, redness, and swelling. he denies any local trauma to the leg. he also complains of worsening L flank pain which is getting progressively worse. Afebrile throughout admission with an elevated white count of 16. he is tachycardic. He is receiving unasyn. Blood and urine cultures are NGTD. Imaging personally reviewed: CXR: No abnormality Tib/fib: No abnormality V/Q scan: Low prob Echo: no veg. Review of Systems: Bold if positive, otherwise negative General: fevers, chills, rigors HEENT: visual disturbance, diplopia, eye pain Respiratory: cough, sputum, hemoptysis, shortness of breath Cardiovascular: chest pain, syncope Gastrointestinal: nausea, vomiting, diarrhea, abdominal pain Genitourinary: dysuria, hematuria, flank pain Musculoskeletal: neck pain, back pain, joint pain, edema Neurologic: headaches, seizures Hematologic: easy bruising or bleeding Endocrine: night sweats, acute weight loss Skin: rash, jaundice, redness Psychiatric: suicidal, homicidal ideation Past History Past Medical History: CAD, hypertension Past Surgical History: No surgical history Social history: no significant social history. denies: smoking, alcohol abuse, prescription drug abuse, IV drug use Family history: hypertension Medications and Allergies Allergies Allergy/AdvReac Type Severity Reaction Status Date / Time No Known Allergies Allergy Unverified 05/16/16 08:15 Active Meds: Active Medications Acetaminophen (Tylenol) 650 mg PO Q4H PRN PRN Reason: Pain MILD(1-3)/Fever >100.5/FLOOD Amlodipine Besylate (Norvasc) 5 mg PO QDAY [facility] Last Admin: 07/27/19 14:50 Dose: 5 mg Documented by: Aspirin (Aspirin) 325 mg PO QDAY [facility] Last Admin: 07/27/19 11:36 Dose: 325 mg Documented by: Hydromorphone HCl (Dilaudid) 0.5 mg IV Q3H PRN PRN Reason: Pain , Severe (7-10) Last Admin: 07/27/19 14:35 Dose: 0.5 mg Documented by: Ampicillin Sodium/Sulbactam Sodium (Unasyn/Ns 1.5 Gm/50 Ml) 1.5 gm in 50 mls @ 100 mls/hr IV Q6HR [facility]; Protocol Last Admin: 07/27/19 12:40 Dose: 100 mls/hr Documented by: Sodium Chloride (Nacl 0.9% 1000 Ml) 1,000 mls @ 125 mls/hr IV DIRECT [facility]SA Last Admin: 07/27/19 14:50 Dose: 125 mls/hr Documented by: Nitroglycerin (Nitro-Bid 2%) 0.5 inch TP QIDNTG [facility]; Protocol Last Admin: 07/27/19 13:45 Dose: Not Given Documented by: Ondansetron HCl (Zofran) 4 mg IV Q6H PRN PRN Reason: Nausea And Vomiting Sodium Chloride (Sodium Chloride Flush Syringe 10 Ml) 10 ml IV BID [facility] Last Admin: 07/27/19 11:36 Dose: 10 ml Documented by: Sodium Chloride (Sodium Chloride Flush Syringe 10 Ml) 10 ml IV PRN PRN PRN Reason: LINE FLUSH Physical Examination - Physical Exam Narrative exam: Physical Exam: Constitutional: Alert, cooperative. No acute distress Head, Ears, Nose: Normocephalic, atraumatic. External ears, nose normal Eyes: Conjunctivae/corneas clear. No icterus. No ptosis. Neck: Supple, no meningeal signs Oral: dentition fair, no thrush Cardiovascular: S1, S2 normal. Respiratory: Good air entry, clear to auscultation bilaterally GI: Soft, non-tender; bowel sounds normal. No peritoneal signs. Musculoskeletal: L leg 3+ edema, tender, red, blanching Skin: No rash or abscess Hem/Lymphatic: No palpable cervical or supraclavicular nodes. No lymphangitis Psych: Mood ok. Affect normal Neurological: Awake, alert, oriented. No gross abnormality - Constitutional Vitals: Vital Signs Temp Pulse Resp BP Pulse Ox 98.0 F 95 H 18 161/86 97 07/27/19 12:39 07/27/19 12:39 07/27/19 12:39 07/27/19 12:39 09/28/19 12:39 Temperature -Last 24 Hours Temperature 98.0 F Temperature 99.6 F Temperature 100.0 F Temperature 98.1 F Temperature 99.1 F Temperature 97.7 F Temperature 100.3 F Results - Labs CBC & Chem 7: 07/27/19 02:28 07/27/19 02:28 Labs: Abnormal lab results 07/26/19 07/26/19 07/26/19 Range/Units 18:53 18:53 18:53 WBC (4.5-11.0) K/mm3 Plt Count 115 L (140-440) K/mm3 Lymph % (Auto) 4.3 L (13.4-35.0) % Yell % (Auto) (0.0-7.3) % Lymph # 0.5 L (1.2-5.4) K/mm3 Yell # (0.0-0.8) K/mm3 Seg Neutrophils % 88.3 H (40.0-70.0) % Seg Neutrophils # 9.5 H (1.8-7.7) K/mm3 INR (0.87-1.13) APTT (24.2-36.6) Sec. D-Dimer 1290.92 H (0-234) ng/mlDDU Heparin Anti-Xa Level (0.3-0.7) U.I./ml Sodium 136 L (137-145) mmol/L Potassium 3.1 L (3.6-5.0) mmol/L BUN 55 H (9-20) mg/dL Creatinine 3.8 H (0.8-1.5) mg/dL Glucose 130 H (75-100) mg/dL Uric Acid (3.5-7.6) mg/dL Calcium (8.4-10.2) mg/dL Total Bilirubin 1.30 H (0.1-1.2) mg/dL Total Creatine Kinase 198 H (55-170) units/L CK-MB (CK-2) (0.0-4.0) ng/mL Troponin T 0.034 H (0.00-0.029) ng/mL Albumin 3.7 L (3.9-5) g/dL Triglycerides 192 H (2-149) mg/dL LDL Cholesterol Direct 48 L (50-130) mg/dL HDL Cholesterol 27 L (40-59) mg/dL Urine WBC (Auto) (0.0-6.0) /HPF Urine Creatinine (0.1-20.0) mg/dL 07/26/19 07/26/19 07/26/19 Range/Units 19:20 19:34 19:40 WBC (4.5-11.0) K/mm3 Plt Count (140-440) K/mm3 Lymph % (Auto) (13.4-35.0) % Yell % (Auto) (0.0-7.3) % Lymph # (1.2-5.4) K/mm3 Yell # (0.0-0.8) K/mm3 Seg Neutrophils % (40.0-70.0) % Seg Neutrophils # (1.8-7.7) K/mm3 INR (0.87-1.13) APTT (24.2-36.6) Sec. D-Dimer (0-234) ng/mlDDU Heparin Anti-Xa Level (0.3-0.7) U.I./ml Sodium (137-145) mmol/L Potassium (3.6-5.0) mmol/L BUN (9-20) mg/dL Creatinine (0.8-1.5) mg/dL Glucose (75-100) mg/dL Uric Acid 11.0 H (3.5-7.6) mg/dL Calcium (8.4-10.2) mg/dL Total Bilirubin (0.1-1.2) mg/dL Total Creatine Kinase (55-170) units/L CK-MB (CK-2) (0.0-4.0) ng/mL Troponin T (0.00-0.029) ng/mL Albumin (3.9-5) g/dL Triglycerides (2-149) mg/dL LDL Cholesterol Direct (50-130) mg/dL HDL Cholesterol (40-59) mg/dL Urine WBC (Auto) 9.0 H (0.0-6.0) /HPF Urine Creatinine 167.4 H (0.1-20.0) mg/dL 07/27/19 07/27/19 07/27/19 Range/Units 02:28 02:28 02:28 WBC 16.1 H (4.5-11.0) K/mm3 Plt Count 120 L (140-440) K/mm3 Lymph % (Auto) 5.5 L (13.4-35.0) % Yell % (Auto) 8.4 H (0.0-7.3) % Lymph # 0.9 L (1.2-5.4) K/mm3 Yell # 1.4 H (0.0-0.8) K/mm3 Seg Neutrophils % 86.0 H (40.0-70.0) % Seg Neutrophils # 13.8 H (1.8-7.7) K/mm3 INR 1.15 H (0.87-1.13) APTT 38.3 H (24.2-36.6) Sec. D-Dimer (0-234) ng/mlDDU Heparin Anti-Xa Level (0.3-0.7) U.I./ml Sodium (137-145) mmol/L Potassium (3.6-5.0) mmol/L BUN (9-20) mg/dL Creatinine (0.8-1.5) mg/dL Glucose (75-100) mg/dL Uric Acid (3.5-7.6) mg/dL Calcium (8.4-10.2) mg/dL Total Bilirubin (0.1-1.2) mg/dL Total Creatine Kinase 195 H (55-170) units/L CK-MB (CK-2) 4.6 H (0.0-4.0) ng/mL Troponin T 0.031 H (0.00-0.029) ng/mL Albumin (3.9-5) g/dL Triglycerides (2-149) mg/dL LDL Cholesterol Direct (50-130) mg/dL HDL Cholesterol (40-59) mg/dL Urine WBC (Auto) (0.0-6.0) /HPF Urine Creatinine (0.1-20.0) mg/dL 07/27/19 07/27/19 Range/Units 02:28 06:35 WBC (4.5-11.0) K/mm3 Plt Count (140-440) K/mm3 Lymph % (Auto) (13.4-35.0) % Yell % (Auto) (0.0-7.3) % Lymph # (1.2-5.4) K/mm3 Yell # (0.0-0.8) K/mm3 Seg Neutrophils % (40.0-70.0) % Seg Neutrophils # (1.8-7.7) K/mm3 INR (0.87-1.13) APTT (24.2-36.6) Sec. D-Dimer (0-234) ng/mlDDU Heparin Anti-Xa Level < 0.10 L (0.3-0.7) U.I./ml Sodium 136 L (137-145) mmol/L Potassium (3.6-5.0) mmol/L BUN 51 H (9-20) mg/dL Creatinine 3.5 H (0.8-1.5) mg/dL Glucose 128 H (75-100) mg/dL Uric Acid (3.5-7.6) mg/dL Calcium 8.0 L (8.4-10.2) mg/dL Total Bilirubin (0.1-1.2) mg/dL Total Creatine Kinase (55-170) units/L CK-MB (CK-2) (0.0-4.0) ng/mL Troponin T (0.00-0.029) ng/mL Albumin (3.9-5) g/dL Triglycerides (2-149) mg/dL LDL Cholesterol Direct (50-130) mg/dL HDL Cholesterol (40-59) mg/dL Urine WBC (Auto) (0.0-6.0) /HPF Urine Creatinine (0.1-20.0) mg/dL Assessment and Plan Cultures: 07/26 BCx: NGTD 07/26 UCx: NGTD A/P: 64 yo M PMhx HTn, EtOH abuse admitted with chest pain, diarrhea, and cellulitis 1. Acute sepsis - present on admission with leukocytosis and tachycardia. Secondary to cellulitis 2. Cellulitis - non-traumatic, given EtOH abuse some risk for gram negatives, but most likely Staph or Strep. Would de-escalate to cefazolin while inpatient. he notes he was picking the skin on his feet, which is his likely portal of entry. 3. Diarrhea - resolved 4. Chest pain 5. EtOH abuse Recs: - stop Unasyn - start cefazolin 2g q8h. If he improves can D/C on Keflex. Dr. Latham taking over Monday. Thank you for the consult, we will continue to follow. Jose Ferrer MD [facility] ([facility]) M: [phone] O: [phone] F: [phone]
[2019-07-27] MEDS: ceFAZolin/NS 1 GM/50 ML 1 GM/50 ML BAG IV SCH (17:01)
--- NOTE | 2019-07-27 19:39 | Ultrasound Report ---
ULTRASOUND RENAL INDICATION / CLINICAL INFORMATION: SHAUNA. COMPARISON: None available. FINDINGS: RIGHT KIDNEY: - Length = 12.4 cm. [Normal > 9.0 cm] - Parenchymal Thickness = 1.7 cm. [Normal > 1.5 cm] - Echogenicity: Normal -- hypoechoic or isoechoic to liver/spleen. - Hydronephrosis: None. - Cyst or mass: No significant abnormality. LEFT KIDNEY: - Length = 10.5 cm. [Normal > 9.0 cm] - Parenchymal Thickness = 2.2 cm. [Normal > 1.5 cm] - Echogenicity: Normal -- hypoechoic or isoechoic to liver/spleen. - Hydronephrosis: None. - Cyst or mass: No significant abnormality. URINARY BLADDER: No significant abnormality. ADDITIONAL FINDINGS: None. IMPRESSION: No evidence of medical renal disease or hydronephrosis. Renal Parenchymal Thickness Parenchyma = Cortex + Medullary Pyramid - Normal >= 1.5 cm - Mild thinning = 1.0-1.49 cm - Moderate thinning = 0.5-0.99 cm - Severe thinning < 0.5 cm Signer Name: Les Hopkins MD Signed: 07/27/2019 7:35 PM Workstation Name: [id number]
[2019-07-27] MEDS: ACETAMINOPHEN 325 MG TAB PO PRN (23:33)
[2019-07-28] MEDS: HYDROmorphone 1 MG/1 ML INJ IV PRN ×2 (03:45→09:14)
[2019-07-28 04:56] LABS: Hematocrit 36.2 % (35.5-45.6); Hemoglobin 11.9 gm/dl (11.8-15.2)
[2019-07-28] MEDS: NITROGLYCERIN 2% OINT 1 GM TP SCH ×4 (05:44→17:40)
[2019-07-28 06:56] LABS: Basophils % (Auto) 0.1 % (0.0-1.8); Eosinophils % (Auto) 0.2 % (0.0-4.3); Hematocrit 37.3 % (35.5-45.6); Hemoglobin 12.3 gm/dl (11.8-15.2); Lymphocytes % (Auto) 5.4 % (13.4-35.0); Mean Corpuscular HGB Conc 33 % (32-34); Mean Corpuscular Volume 93 fl (84-94); Monocytes # (Auto) 1.5 K/mm3 (0.0-0.8); Monocytes % (Auto) 8.3 % (0.0-7.3); Platelet Count 116 K/mm3 (140-440); Red Blood Count 4.01 M/mm3 (3.65-5.03); Red Cell Distribution Width 14.2 % (13.2-15.2)
[2019-07-28 07:15] LABS: Calcium 8.5 mg/dL (8.4-10.2)
[2019-07-28] MEDS: ACETAMINOPHEN 325 MG TAB PO PRN ×2 (07:33→21:33)
[2019-07-28] MEDS: amLODIPine 5 MG TAB PO SCH (09:13)
[2019-07-28] MEDS: ASPIRIN 325 MG TAB PO SCH (09:13)
--- NOTE | 2019-07-28 10:25 | Progress Note ---
Assessment and Plan - Patient Problems (1) SHAUNA (acute kidney injury) Current Visit: Yes Status: Acute Plan to address problem: SHAUNA is most likely secondary to pre-renal azotemia in the setting of LLE cellulitis. FeNA < 1%. renal function improving on IVF, cont IV NS at 125ml/hr. Renal US ruled out obstructive nephropathy and other structural disease. Avoid further nephrotoxins, NSAIDs, IV contrast. Will monitor lytes/renal parameters closely and make further recommendations. (2) Cellulitis and abscess of left leg Current Visit: Yes Status: Acute Plan to address problem: cont IV ABXs with vanco/ampicillin, dose for current eGFR < 20mls/min (3) Hypokalemia Current Visit: Yes Status: Acute Plan to address problem: normalized after K supplementation with KDur (4) Essential (primary) hypertension Current Visit: Yes Status: Acute Plan to address problem: will start amlodipine 5mg po qd for BP control Subjective Date of service: 07/28/19 Principal diagnosis: SHAUNA on CKD Interval history: Patient is awake, alert, in no acute distress, reports increased UOP Objective - Vital Signs Vital signs: Vital Signs - 12hr 07/27/19 07/28/19 07/28/19 22:24 05:11 05:44 Temperature 98.2 F Pulse Rate 82 104 H Respiratory 20 Rate Blood Pressure 143/85 143/85 O2 Sat by Pulse 97 97 Oximetry 07/28/19 09:13 Temperature Pulse Rate Respiratory Rate Blood Pressure 140/80 O2 Sat by Pulse Oximetry - General Appearance General appearance: well-developed, well-nourished, appears stated age EENT: ATNC, PERRL, mucous membranes moist Neck: no JVD Respiratory: Present: Clear to Ascultation Cardiology: regular, S1S2 Gastrointestinal: normoactive bowel sounds Integumentary: rash, other (LLE edema ) Neurologic: no focal deficit, alert and oriented x3, strength 5/5, CN 3-12 intact Psychiatric: mood/affect appropriate, cooperative - Lab 07/28/19 06:30 07/28/19 06:30 Most recent lab results Calcium 8.5 mg/dL (8.4-10.2) 07/28/19 06:30 Magnesium 2.00 mg/dL (1.7-2.3) 07/26/19 18:53 167.4 mg/dL (0.1-20.0) H 07/26/19 19:34 38 mmol/L 07/26/19 19:34 Medications & Allergies - Medications Allergies/Adverse Reactions: Allergies No Known Allergies Allergy (Unverified 05/16/16 08:15) Active Medications: Generic Name Dose Route Start Last Admin Trade Name Freq PRN Reason Stop Dose Admin Acetaminophen 650 mg 07/26/19 20:43 07/28/19 07:33 Tylenol PO 650 mg Q4H PRN Administration Pain MILD(1-3)/Fever >100.5/FLOOD Amlodipine Besylate 5 mg 07/27/19 15:00 07/28/19 09:13 Norvasc PO 5 mg QDAY [facility] Administration Aspirin 325 mg 07/27/19 10:00 07/28/19 09:13 Aspirin PO 325 mg QDAY [facility] Administration Hydromorphone HCl 0.5 mg 07/26/19 20:50 07/28/19 09:14 Dilaudid IV 0.5 mg Q3H PRN Administration Pain , Severe (7-10) Sodium Chloride 1,000 mls @ 125 mls/hr 07/26/19 22:00 07/28/19 03:50 Nacl 0.9% 1000 Ml IV Infused DIRECT [facility] Infusion Cefazolin Sodium 1 gm in 50 mls @ 100 mls/hr 07/27/19 17:00 07/27/19 17:01 Ancef/Ns 1 Gm/50 Ml IV 100 mls/hr Q24H [facility] Administration Nitroglycerin 0.5 inch 07/27/19 06:00 07/28/19 09:15 Nitro-Bid 2% TP Not Given QIDNTG [facility] Protocol Ondansetron HCl 4 mg 07/26/19 20:43 Zofran IV Q6H PRN Nausea And Vomiting Sodium Chloride 10 ml 07/26/19 22:00 07/28/19 09:15 Sodium Chloride Flush Syringe 10 Ml IV 10 ml BID [facility] Administration Sodium Chloride 10 ml 07/26/19 20:43 Sodium Chloride Flush Syringe 10 Ml IV PRN PRN LINE FLUSH
--- NOTE | 2019-07-28 11:07 | Progress Note ---
Assessment and Plan Patient is seen for cardiac evaluation. At present he denies any chest pain. Recent cardiac workup has been negative. Current problem appears to be cellulitis of the left leg. Cardiac rhythm is stable. Cardiac examination is stable. Continue current management. I will see him when necessary - Patient Problems (1) SHAUNA (acute kidney injury) Current Visit: Yes Status: Acute (2) Acute chest pain Current Visit: Yes Status: Acute (3) Cellulitis and abscess of left leg Current Visit: Yes Status: Acute (4) Essential (primary) hypertension Current Visit: Yes Status: Acute Subjective Date of service: 07/28/19 Principal diagnosis: SHAUNA on CKD Interval history: Patient is resting comfortably. Denies any chest pain. Still complains about leg pain. Objective Vital Signs Temp Pulse Resp BP Pulse Ox 07/28/19 09:13 140/80 07/28/19 05:44 104 H 143/85 07/28/19 05:11 98.2 F 82 20 143/85 97 07/27/19 22:24 97 07/27/19 21:59 99.4 F 95 H 20 155/78 96 07/27/19 17:54 99.0 F 91 H 19 157/80 90 07/27/19 12:39 98.0 F 95 H 18 161/86 97 - Physical Examination General: Appears Well Neck: Positive: neck supple Cardiac: Positive: Reg Rate and Rhythm Lungs: Positive: clear to auscultation Abdomen: Positive: Soft Extremities: Present: Other (swelling and cellulitis of the left leg.) - Labs and Meds CBC 07/28/19 07/28/19 Range/Units 04:14 06:30 WBC 18.3 H (4.5-11.0) K/mm3 RBC 4.01 (3.65-5.03) M/mm3 Hgb 11.9 12.3 (11.8-15.2) gm/dl Hct 36.2 37.3 (35.5-45.6) % Plt Count 121 L 116 L (140-440) K/mm3 Lymph # 1.0 L (1.2-5.4) K/mm3 [place] # 1.5 H (0.0-0.8) K/mm3 Eos # 0.0 (0.0-0.4) K/mm3 Baso # 0.0 (0.0-0.1) K/mm3 Comprehensive Metabolic Panel 07/28/19 Range/Units 06:30 Sodium 137 (137-145) mmol/L Potassium 3.6 (3.6-5.0) mmol/L Chloride 98.5 (98-107) mmol/L Carbon Dioxide 23 (22-30) mmol/L BUN 39 H (9-20) mg/dL Creatinine 2.2 H (0.8-1.5) mg/dL Glucose 122 H (75-100) mg/dL Calcium 8.5 (8.4-10.2) mg/dL - Imaging and Cardiology EKG: report reviewed
[2019-07-28] MEDS ORDERED: LORazepam 2 MG/ML VIAL IV PRN (13:48)
--- NOTE | 2019-07-28 13:51 | Progress Note ---
Assessment and Plan - Patient Problems (1) Cellulitis and abscess of left leg Current Visit: Yes Status: Acute Plan to address problem: Improving appreciate infectious disease consult. Change in medical management. His cephalosporin and discharged with Keflex. (2) SHAUNA (acute kidney injury) Current Visit: Yes Status: Acute Plan to address problem: Secondary to prerenal azotemia has had improvement. Ultrasound showed no medical renal disease. (3) Acute chest pain Current Visit: Yes Status: Acute Plan to address problem: Extensive workup for chest pain. Patient states he did not have any chest pain. No further cardiac workup indicated. (4) History of diarrhea Current Visit: Yes Status: Acute Plan to address problem: Patient with normal stool today. C. difficile (5) Hypokalemia Current Visit: Yes Status: Acute Plan to address problem: correct as required History Interval history: Patient feels much better today. No concerns no chest pain or shortness of breath. Still has some left leg pain states medication at present makes him nauseated it would like a change. Fever chills no nausea vomiting. Patient did have one stool today. Hospitalist Physical - Constitutional Vitals: Temp Pulse Resp BP Pulse Ox 98.0 F 74 18 151/77 95 07/28/19 12:27 07/28/19 12:27 07/28/19 12:27 07/28/19 12:27 07/28/19 12:27 General appearance: Present: no acute distress - EENT Eyes: Present: PERRL, EOM intact ENT: hearing intact, clear oral mucosa, dentition normal - Neck Neck: Present: supple, normal ROM - Respiratory Respiratory effort: normal Respiratory: bilateral: CTA - Cardiovascular Rhythm: regular - Extremities Extremities: no ischemia, pulses intact, pulses symmetrical Extremity abnormal: edema, other (warm tender swollen left lower extremity. Cellulitic. Improved in 24 hours.) Peripheral Pulses: within normal limits - Abdominal General gastrointestinal: soft, non-tender, non-distended, normal bowel sounds, no hepatomegaly, no splenomegaly - Integumentary Integumentary: Present: clear, warm, dry - Psychiatric Psychiatric: appropriate mood/affect, intact judgment & insight, memory intact - Neurologic Neurologic: CNII-XII intact, moves all extremities Results - Labs CBC & Chem 7: 07/28/19 06:30 07/28/19 06:30 Labs: Laboratory Last Values WBC 18.3 K/mm3 (4.5-11.0) H 07/28/19 06:30 RBC 4.01 M/mm3 (3.65-5.03) 07/28/19 06:30 Hgb 12.3 gm/dl (11.8-15.2) 07/28/19 06:30 Hct 37.3 % (35.5-45.6) 07/28/19 06:30 MCV 93 fl (84-94) 07/28/19 06:30 MCH 31 pg (28-32) 07/28/19 06:30 MCHC 33 % (32-34) 07/28/19 06:30 RDW 14.2 % (13.2-15.2) 07/28/19 06:30 Plt Count 116 K/mm3 (140-440) L 07/28/19 06:30 Lymph % (Auto) 5.4 % (13.4-35.0) L 07/28/19 06:30 [place] % (Auto) 8.3 % (0.0-7.3) H 07/28/19 06:30 Eos % (Auto) 0.2 % (0.0-4.3) 07/28/19 06:30 Baso % (Auto) 0.1 % (0.0-1.8) 07/28/19 06:30 Lymph # 1.0 K/mm3 (1.2-5.4) L 07/28/19 06:30 [place] # 1.5 K/mm3 (0.0-0.8) H 07/28/19 06:30 Eos # 0.0 K/mm3 (0.0-0.4) 07/28/19 06:30 Baso # 0.0 K/mm3 (0.0-0.1) 07/28/19 06:30 Seg Neutrophils % 86.0 % (40.0-70.0) H 07/28/19 06:30 Seg Neutrophils # 15.7 K/mm3 (1.8-7.7) H 07/28/19 06:30 PT 14.4 Sec. (12.2-14.9) 07/27/19 02:28 INR 1.15 (0.87-1.13) H 07/27/19 02:28 APTT 38.3 Sec. (24.2-36.6) H 07/27/19 02:28 1290.92 ng/mlDDU (0-234) H 07/26/19 18:53 Heparin Anti-Xa Level < 0.10 U.I./ml (0.3-0.7) L 07/27/19 06:35 Sodium 137 mmol/L (137-145) 07/28/19 06:30 Potassium 3.6 mmol/L (3.6-5.0) 07/28/19 06:30 Chloride 98.5 mmol/L (98-107) 07/28/19 06:30 Carbon Dioxide 23 mmol/L (22-30) 07/28/19 06:30 19 mmol/L 07/28/19 06:30 BUN 39 mg/dL (9-20) H 07/28/19 06:30 2.2 mg/dL (0.8-1.5) H 07/28/19 06:30 Estimated GFR 30 ml/min 07/28/19 06:30 18 % 07/28/19 06:30 Glucose 122 mg/dL (75-100) H 07/28/19 06:30 Lactic Acid 0.70 mmol/L (0.7-2.0) 07/26/19 19:51 11.0 mg/dL (3.5-7.6) H 07/26/19 19:40 Calcium 8.5 mg/dL (8.4-10.2) 07/28/19 06:30 Magnesium 2.00 mg/dL (1.7-2.3) 07/26/19 18:53 1.30 mg/dL (0.1-1.2) H 07/26/19 18:53 AST 18 units/L (5-40) 07/26/19 18:53 ALT 15 units/L (7-56) 07/26/19 18:53 78 units/L (35-129) 07/26/19 18:53 166 units/L (55-170) 07/27/19 06:35 CK-MB (CK-2) 3.5 ng/mL (0.0-4.0) 07/27/19 06:35 CK-MB (CK-2) Rel Index 2.1 (0-4) 07/27/19 06:35 0.021 ng/mL (0.00-0.029) 07/27/19 06:35 7.2 g/dL (6.3-8.2) 07/26/19 18:53 3.7 g/dL (3.9-5) L 07/26/19 18:53 1.1 % 07/26/19 18:53 Triglycerides 192 mg/dL (2-149) H 07/26/19 18:53 Cholesterol 122 mg/dL (50-199) 07/26/19 18:53 48 mg/dL (50-130) L 07/26/19 18:53 27 mg/dL (40-59) L 07/26/19 18:53 4.51 % 07/26/19 18:53 TSH 0.529 mlU/mL (0.270-4.200) 07/26/19 19:40 Yellow (Yellow) 07/26/19 19:20 Slightly-cloudy (Clear) 07/26/19 19:20 5.0 (5.0-7.0) 07/26/19 19:20 Ur Specific [place] 1.013 (1.003-1.030) 07/26/19 19:20 100 mg/dl mg/dL (Negative) 07/26/19 19:20 Neg mg/dL (Negative) 07/26/19 19:20 Neg mg/dL (Negative) 07/26/19 19:20 Mod (Negative) 07/26/19 19:20 Neg (Negative) 07/26/19 19:20 Neg (Negative) 07/26/19 19:20 2.0 mg/dL (<2.0) 07/26/19 19:20 Ur Leukocyte Esterase Neg (Negative) 07/26/19 19:20 9.0 /HPF (0.0-6.0) H 07/26/19 19:20 1.0 /HPF (0.0-6.0) 07/26/19 19:20 U Epithel Cells (Auto) < 1.0 /HPF (0-13.0) 07/26/19 19:20 Few /HPF 07/26/19 19:20 359 Mosm/kg 07/26/19 19:34 167.4 mg/dL (0.1-20.0) H 07/26/19 19:34 38 mmol/L 07/26/19 19:34 Presumptive negative 07/26/19 19:34 Presumptive negative 07/26/19 19:34 Ur Barbiturates Screen Presumptive negative 07/26/19 19:34 Ur Phencyclidine Scrn Presumptive negative 07/26/19 19:34 Ur Amphetamines Screen Presumptive negative 07/26/19 19:34 U Benzodiazepines Scrn Presumptive negative 07/26/19 19:34 Presumptive negative 07/26/19 19:34 U Marijuana (THC) Screen Presumptive negative 07/26/19 19:34 Disclamer 07/26/19 19:34 Active Medications - Current Medications Current Medications: Generic Name Dose Route Start Last Admin Trade Name Freq PRN Reason Stop Dose Admin Acetaminophen 650 mg 07/26/19 20:43 07/28/19 07:33 Tylenol PO 650 mg Q4H PRN Administration Pain MILD(1-3)/Fever >100.5/FLOOD Amlodipine Besylate 5 mg 07/27/19 15:00 07/28/19 09:13 Norvasc PO 5 mg QDAY [facility] Administration Aspirin 325 mg 07/27/19 10:00 07/28/19 09:13 Aspirin PO 325 mg QDAY [facility] Administration Hydromorphone HCl 0.5 mg 07/26/19 20:50 07/28/19 09:14 Dilaudid IV 0.5 mg Q3H PRN Administration Pain , Severe (7-10) Cefazolin Sodium 1 gm in 50 mls @ 100 mls/hr 07/27/19 17:00 07/27/19 17:01 Ancef/Ns 1 Gm/50 Ml IV 100 mls/hr Q24H ELSA Administration Nitroglycerin 0.5 inch 07/27/19 06:00 07/28/19 13:25 Nitro-Bid 2% TP Not Given QIDNTG [facility] Protocol Ondansetron HCl 4 mg 07/26/19 20:43 Zofran IV Q6H PRN Nausea And Vomiting Oxycodone/Acetaminophen 1 tab 07/28/19 13:28 Percocet 5/325 PO Q6H PRN Pain, Moderate (4-6) Sodium Chloride 10 ml 07/26/19 22:00 07/28/19 09:15 Sodium Chloride Flush Syringe 10 Ml IV 10 ml BID ELSA Administration Sodium Chloride 10 ml 07/26/19 20:43 Sodium Chloride Flush Syringe 10 Ml IV PRN PRN LINE FLUSH
[2019-07-28] MEDS: oxyCODONE /ACETAMINOPHEN 5-325MG TAB PO PRN ×2 (15:32→21:28)
[2019-07-28] MEDS: ceFAZolin/NS 1 GM/50 ML 1 GM/50 ML BAG IV SCH (17:36)
[2019-07-29 08:29] LABS: Basophils % (Auto) 0.2 % (0.0-1.8); Eosinophils # (Auto) 0.1 K/mm3 (0.0-0.4); Eosinophils % (Auto) 0.6 % (0.0-4.3); Hematocrit 35.4 % (35.5-45.6); Hemoglobin 11.8 gm/dl (11.8-15.2); Lymphocytes % (Auto) 5.6 % (13.4-35.0); Mean Corpuscular HGB Conc 33 % (32-34); Mean Corpuscular Volume 93 fl (84-94); Monocytes % (Auto) 5.9 % (0.0-7.3); Platelet Count 135 K/mm3 (140-440); Red Cell Distribution Width 14.5 % (13.2-15.2)
[2019-07-29 08:47] LABS: Calcium 8.8 mg/dL (8.4-10.2)
--- NOTE | 2019-07-29 09:49 | Progress Note ---
Assessment and Plan - Patient Problems (1) SHAUNA (acute kidney injury) Current Visit: Yes Status: Acute Plan to address problem: SHAUNA is most likely secondary to pre-renal azotemia in the setting of LLE cellulitis. FeNA < 1%. renal function improving on IVF. pt with adequate po intake, will d/c IVF. Renal US ruled out obstructive nephropathy and other s tructural disease. Avoid further nephrotoxins, NSAIDs, IV contrast. Will monitor lytes/renal parameters closely and make further recommendations. (2) Cellulitis and abscess of left leg Current Visit: Yes Status: Acute Plan to address problem: cont IV ABXs with vanco/ampicillin, dose for current eGFR < 20mls/min (3) Hypokalemia Current Visit: Yes Status: Acute Plan to address problem: normalized after K supplementation with KDur (4) Essential (primary) hypertension Current Visit: Yes Status: Acute Plan to address problem: will start amlodipine 5mg po qd for BP control Subjective Date of service: 07/29/19 Principal diagnosis: SHAUNA on CKD Interval history: Patient is awake, alert, in no acute distress Objective - Vital Signs Vital signs: Vital Signs - 12hr 07/28/19 07/29/19 22:00 06:03 Temperature 98.7 F Pulse Rate 110 H 79 Respiratory 20 Rate Blood Pressure 169/86 O2 Sat by Pulse 97 Oximetry - General Appearance General appearance: well-developed, well-nourished, appears stated age EENT: ATNC, PERRL, mucous membranes moist Neck: no JVD Respiratory: Present: Clear to Ascultation Cardiology: regular, S1S2 Gastrointestinal: normoactive bowel sounds Integumentary: no rash, other (no edema ) Neurologic: no focal deficit, alert and oriented x3, strength 5/5, CN 3-12 intact Psychiatric: mood/affect appropriate, cooperative - Lab 07/29/19 07:52 07/29/19 07:52 Most recent lab results Calcium 8.8 mg/dL (8.4-10.2) 07/29/19 07:52 Magnesium 2.00 mg/dL (1.7-2.3) 07/26/19 18:53 Urine Creatinine 167.4 mg/dL (0.1-20.0) H 07/26/19 19:34 Urine Sodium 38 mmol/L 07/26/19 19:34 Medications & Allergies - Medications Allergies/Adverse Reactions: Allergies No Known Allergies Allergy (Unverified 05/16/16 08:15) Active Medications: Generic Name Dose Route Start Last Admin Trade Name Mayra PRN Reason Stop Dose Admin Acetaminophen 650 mg 07/26/19 20:43 07/28/19 21:33 Tylenol PO 650 mg Q4H PRN Administration Pain MILD(1-3)/Fever >100.5/FLOOD Amlodipine Besylate 5 mg 07/27/19 15:00 07/28/19 09:13 Norvasc PO 5 mg QDAY ELSA Administration Aspirin 325 mg 07/27/19 10:00 07/28/19 09:13 Aspirin PO 325 mg QDAY ELSA Administration Cefazolin Sodium 1 gm in 50 mls @ 100 mls/hr 07/27/19 17:00 07/28/19 17:36 Ancef/Ns 1 Gm/50 Ml IV 100 mls/hr Q24H ELSA Administration Lorazepam 1 mg 07/28/19 13:48 07/28/19 23:39 Ativan IV 1 mg Q4H PRN Administration Agitation Nitroglycerin 0.5 inch 07/27/19 06:00 07/28/19 17:40 Nitro-Bid 2% TP Not Given QIDNTG [facility] Protocol Ondansetron HCl 4 mg 07/26/19 20:43 Zofran IV Q6H PRN Nausea And Vomiting Oxycodone/Acetaminophen 1 tab 07/28/19 13:28 07/28/19 21:28 Percocet 5/325 PO 1 tab Q6H PRN Administration Pain, Moderate (4-6) Sodium Chloride 10 ml 07/26/19 22:00 07/28/19 23:40 Sodium Chloride Flush Syringe 10 Ml IV 10 ml BID ELSA Administration Sodium Chloride 10 ml 07/26/19 20:43 Sodium Chloride Flush Syringe 10 Ml IV PRN PRN LINE FLUSH
[2019-07-29] MEDS: amLODIPine 5 MG TAB PO SCH (10:03)
[2019-07-29] MEDS: ASPIRIN 325 MG TAB PO SCH (10:03)
[2019-07-29] MEDS: NITROGLYCERIN 2% OINT 1 GM TP SCH ×4 (10:04→18:15)
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
--- NOTE | 2019-07-29 11:11 | Progress Note ---
Assessment and Plan - Patient Problems (1) Cellulitis and abscess of left leg Current Visit: Yes Status: Acute Plan to address problem: Cellulitis improved significantly. Decreased swelling decreased erythema. Patient on cefazolin every 8. Should be stable for home in a.m. with by mouth antibiotics. Keflex. (2) SHAUNA (acute kidney injury) Current Visit: Yes Status: Acute Plan to address problem: Significant improvement and acute kidney injury was secondary to prerenal azotemia. (3) Acute chest pain Current Visit: Yes Status: Acute Plan to address problem: Extensive workup for chest pain. Patient states he did not have any chest pain. No further cardiac workup indicated. (4) History of diarrhea Current Visit: Yes Status: Acute Plan to address problem: Diarrhea has resolved. (5) Hypokalemia Current Visit: Yes Status: Acute Plan to address problem: correct as required History Interval history: Patient actually feels much better today. Had episode of sundowning over p.m. treated well with Ativan. Hospitalist Physical - Constitutional Vitals: Temp Pulse Resp BP Pulse Ox 98.7 F 79 20 169/86 97 07/29/19 06:03 07/29/19 06:03 07/29/19 06:03 07/29/19 06:03 07/29/19 06:03 General appearance: Present: no acute distress - EENT Eyes: Present: PERRL, EOM intact ENT: hearing intact, clear oral mucosa, dentition normal - Neck Neck: Present: supple, normal ROM - Respiratory Respiratory: bilateral: CTA - Cardiovascular Rhythm: regular - Extremities Extremities: no ischemia, pulses intact, pulses symmetrical, Full ROM Extremity abnormal: edema Peripheral Pulses: within normal limits - Abdominal General gastrointestinal: soft, non-tender, non-distended, normal bowel sounds - Integumentary Integumentary: Present: warm, dry, erythema. Absent: jaundice, rash, clammy, pale - Psychiatric Psychiatric: appropriate mood/affect, intact judgment & insight, memory intact Results - Labs CBC & Chem 7: 07/29/19 07:52 07/29/19 07:52 Labs: Laboratory Last Values WBC 17.1 K/mm3 (4.5-11.0) H 07/29/19 07:52 RBC 3.80 M/mm3 (3.65-5.03) 07/29/19 07:52 Hgb 11.8 gm/dl (11.8-15.2) 07/29/19 07:52 Hct 35.4 % (35.5-45.6) L 07/29/19 07:52 MCV 93 fl (84-94) 07/29/19 07:52 MCH 31 pg (28-32) 07/29/19 07:52 MCHC 33 % (32-34) 07/29/19 07:52 RDW 14.5 % (13.2-15.2) 07/29/19 07:52 Plt Count 135 K/mm3 (140-440) L 07/29/19 07:52 Lymph % (Auto) 5.6 % (13.4-35.0) L 07/29/19 07:52 [place] % (Auto) 5.9 % (0.0-7.3) 07/29/19 07:52 Eos % (Auto) 0.6 % (0.0-4.3) 07/29/19 07:52 Baso % (Auto) 0.2 % (0.0-1.8) 07/29/19 07:52 Lymph # 1.0 K/mm3 (1.2-5.4) L 07/29/19 07:52 [place] # 1.0 K/mm3 (0.0-0.8) H 07/29/19 07:52 Eos # 0.1 K/mm3 (0.0-0.4) 07/29/19 07:52 Baso # 0.0 K/mm3 (0.0-0.1) 07/29/19 07:52 Seg Neutrophils % 87.7 % (40.0-70.0) H 07/29/19 07:52 Seg Neutrophils # 14.9 K/mm3 (1.8-7.7) H 07/29/19 07:52 PT 14.4 Sec. (12.2-14.9) 07/27/19 02:28 INR 1.15 (0.87-1.13) H 07/27/19 02:28 APTT 38.3 Sec. (24.2-36.6) H 07/27/19 02:28 D-Dimer 1290.92 ng/mlDDU (0-234) H 07/26/19 18:53 Heparin Anti-Xa Level < 0.10 U.I./ml (0.3-0.7) L 07/27/19 06:35 Sodium 140 mmol/L (137-145) 07/29/19 07:52 Potassium 3.5 mmol/L (3.6-5.0) L 07/29/19 07:52 Chloride 99.7 mmol/L (98-107) 07/29/19 07:52 Carbon Dioxide 26 mmol/L (22-30) 07/29/19 07:52 Anion Gap 18 mmol/L 07/29/19 07:52 BUN 29 mg/dL (9-20) H 07/29/19 07:52 Creatinine 1.7 mg/dL (0.8-1.5) H 07/29/19 07:52 Estimated GFR 41 ml/min 07/29/19 07:52 BUN/Creatinine Ratio 17 % 07/29/19 07:52 Glucose 126 mg/dL (75-100) H 07/29/19 07:52 Lactic Acid 0.70 mmol/L (0.7-2.0) 07/26/19 19:51 Uric Acid 11.0 mg/dL (3.5-7.6) H 07/26/19 19:40 Calcium 8.8 mg/dL (8.4-10.2) 07/29/19 07:52 Magnesium 2.00 mg/dL (1.7-2.3) 07/26/19 18:53 Total Bilirubin 1.30 mg/dL (0.1-1.2) H 07/26/19 18:53 AST 18 units/L (5-40) 07/26/19 18:53 ALT 15 units/L (7-56) 07/26/19 18:53 Alkaline Phosphatase 78 units/L (35-129) 07/26/19 18:53 Total Creatine Kinase 166 units/L (55-170) 07/27/19 06:35 CK-MB (CK-2) 3.5 ng/mL (0.0-4.0) 07/27/19 06:35 CK-MB (CK-2) Rel Index 2.1 (0-4) 07/27/19 06:35 Troponin T 0.021 ng/mL (0.00-0.029) 07/27/19 06:35 Total Protein 7.2 g/dL (6.3-8.2) 07/26/19 18:53 Albumin 3.7 g/dL (3.9-5) L 07/26/19 18:53 Albumin/Globulin Ratio 1.1 % 07/26/19 18:53 Triglycerides 192 mg/dL (2-149) H 07/26/19 18:53 Cholesterol 122 mg/dL (50-199) 07/26/19 18:53 LDL Cholesterol Direct 48 mg/dL (50-130) L 07/26/19 18:53 HDL Cholesterol 27 mg/dL (40-59) L 07/26/19 18:53 Cholesterol/HDL Ratio 4.51 % 07/26/19 18:53 TSH 0.529 mlU/mL (0.270-4.200) 07/26/19 19:40 Urine Color Yellow (Yellow) 07/26/19 19:20 Urine Turbidity Slightly-cloudy (Clear) 07/26/19 19:20 Urine pH 5.0 (5.0-7.0) 07/26/19 19:20 Ur Specific [place] 1.013 (1.003-1.030) 07/26/19 19:20 Urine Protein 100 mg/dl mg/dL (Negative) 07/26/19 19:20 Urine Glucose (UA) Neg mg/dL (Negative) 07/26/19 19:20 Urine Ketones Neg mg/dL (Negative) 07/26/19 19:20 Urine Blood Mod (Negative) 07/26/19 19:20 Urine Nitrite Neg (Negative) 07/26/19 19:20 Urine Bilirubin Neg (Negative) 07/26/19 19:20 Urine Urobilinogen 2.0 mg/dL (<2.0) 07/26/19 19:20 Ur Leukocyte Esterase Neg (Negative) 07/26/19 19:20 Urine WBC (Auto) 9.0 /HPF (0.0-6.0) H 07/26/19 19:20 Urine RBC (Auto) 1.0 /HPF (0.0-6.0) 07/26/19 19:20 U Epithel Cells (Auto) < 1.0 /HPF (0-13.0) 07/26/19 19:20 Urine Mucus Few /HPF 07/26/19 19:20 Urine Osmolality 359 Mosm/kg 07/26/19 19:34 Urine Creatinine 167.4 mg/dL (0.1-20.0) H 07/26/19 19:34 Urine Sodium 38 mmol/L 07/26/19 19:34 Urine Opiates Screen Presumptive negative 07/26/19 19:34 Urine Methadone Screen Presumptive negative 07/26/19 19:34 Ur Barbiturates Screen Presumptive negative 07/26/19 19:34 Ur Phencyclidine Scrn Presumptive negative 07/26/19 19:34 Ur Amphetamines Screen Presumptive negative 07/26/19 19:34 U Benzodiazepines Scrn Presumptive negative 07/26/19 19:34 Urine Cocaine Screen Presumptive negative 07/26/19 19:34 U Marijuana (THC) Screen Presumptive negative 07/26/19 19:34 Drugs of Abuse Note Disclamer 07/26/19 19:34 Active Medications - Current Medications Current Medications: Generic Name Dose Route Start Last Admin Trade Name Freq PRN Reason Stop Dose Admin Acetaminophen 650 mg 07/26/19 20:43 07/28/19 21:33 Tylenol PO 650 mg Q4H PRN Administration Pain MILD(1-3)/Fever >100.5/FLOOD Amlodipine Besylate 5 mg 07/27/19 15:00 07/29/19 10:03 Norvasc PO 5 mg QDAY ELSA Administration Aspirin 325 mg 07/27/19 10:00 07/29/19 10:03 Aspirin PO 325 mg QDAY ELSA Administration Cefazolin Sodium 2 gm/ Sodium 100 mls @ 200 mls/hr 07/29/19 14:00 Chloride IV Q8HR [facility] Protocol Lorazepam 1 mg 07/28/19 13:48 07/28/19 23:39 Ativan IV 1 mg Q4H PRN Administration Agitation Nitroglycerin 0.5 inch 07/27/19 06:00 07/29/19 10:07 Nitro-Bid 2% TP Not Given QIDNTG [facility] Protocol Ondansetron HCl 4 mg 07/26/19 20:43 Zofran IV Q6H PRN Nausea And Vomiting Oxycodone/Acetaminophen 1 tab 07/28/19 13:28 07/28/19 21:28 Percocet 5/325 PO 1 tab Q6H PRN Administration Pain, Moderate (4-6) Sodium Chloride 10 ml 07/26/19 22:00 07/29/19 10:04 Sodium Chloride Flush Syringe 10 Ml IV 10 ml BID ELSA Administration Sodium Chloride 10 ml 07/26/19 20:43 Sodium Chloride Flush Syringe 10 Ml IV PRN PRN LINE FLUSH
[2019-07-29] MEDS ORDERED: VANCOMYCIN/NS 1 GM/250 ML 1 GM/250 ML BAG IV SCH (12:00)
[2019-07-29] MEDS: VANCOMYCIN 2,000 MG in SODIUM CHLORIDE 0.9% 500 ML 500 ML IV SCH (12:49)
[2019-07-29] MEDS: oxyCODONE /ACETAMINOPHEN 5-325MG TAB PO PRN ×2 (17:18→23:19)
--- NOTE | 2019-07-29 19:15 | Cat Scan Report ---
CT lower extremity LT wo con INDICATION: extensive left calf cellulitis. TECHNIQUE: CT of the left calf performed without contrast. All CT scans at this location are performed using CT dose reduction for ALARA by means of automated exposure control. COMPARISON: Left tibia and fibula radiographs on 07/26/2019. FINDINGS: There is extensive subcutaneous cellulitis in the left calf. There is no focal fluid collection or de ep intramuscular edema. There is no evidence of osteomyelitis. There is mild DJD in the visualized po rtion of the knee without appreciable joint effusion. There is no ankle joint effusion. IMPRESSION: 1. Extensive subcutaneous cellulitis in the left calf without focal fluid collection or evidence of o steomyelitis. Signer Name: Arben Conrad MD Signed: 07/29/2019 7:11 PM Workstation Name: [id number]
[2019-07-29] MEDS: ACETAMINOPHEN 325 MG TAB PO PRN (22:08)
[2019-07-30 04:57] LABS: Hemoglobin 11.3 gm/dl (11.8-15.2)
[2019-07-30] MEDS: oxyCODONE /ACETAMINOPHEN 5-325MG TAB PO PRN ×3 (05:36→22:24)
[2019-07-30 07:32] LABS: Calcium 8.4 mg/dL (8.4-10.2)
[2019-07-30] MEDS ORDERED: POTASSIUM CHLORIDE ER 20 MEQ TAB PO ONE (09:30)
--- NOTE | 2019-07-30 09:51 | Progress Note ---
Assessment and Plan - Patient Problems (1) SHAUNA (acute kidney injury) Current Visit: Yes Status: Acute Plan to address problem: SHAUNA is most likely secondary to pre-renal azotemia in the setting of LLE cellulitis. FeNA < 1%. renal function improved on IVF, now d/jose. Renal US ruled out obstructive nephropathy and other structural disease. Avoid further nephrotoxins, NSAIDs, IV contrast. (2) Cellulitis and abscess of left leg Current Visit: Yes Status: Acute Plan to address problem: cont IV ABXs with vanco/ampicillin, dose for current eGFR < 20mls/min (3) Hypokalemia Current Visit: Yes Status: Acute Plan to address problem: K supplementation with KDur (4) Essential (primary) hypertension Current Visit: Yes Status: Acute Plan to address problem: will start amlodipine 5mg po qd for BP control Subjective Date of service: 07/30/19 Principal diagnosis: cellulitis Interval history: Patient is awake, alert, in no acute distress Objective - Vital Signs Vital signs: Vital Signs - 12hr 07/29/19 07/29/19 07/29/19 22:08 22:16 23:19 Temperature 98.6 F Pulse Rate 85 Respiratory 18 20 18 Rate Blood Pressure 167/90 O2 Sat by Pulse 97 Oximetry 07/30/19 07/30/19 05:34 05:36 Temperature 98.3 F Pulse Rate 83 Respiratory 20 18 Rate Blood Pressure 162/84 O2 Sat by Pulse 94 Oximetry - General Appearance General appearance: well-developed, well-nourished, appears stated age EENT: ATNC, PERRL, mucous membranes moist Neck: no JVD Respiratory: Present: Clear to Ascultation Cardiology: regular, S1S2 Gastrointestinal: normoactive bowel sounds Integumentary: no rash, other (no edema ) Neurologic: no focal deficit, alert and oriented x3, strength 5/5, CN 3-12 intact Psychiatric: mood/affect appropriate, cooperative - Lab 07/30/19 04:16 07/30/19 07:00 Most recent lab results Calcium 8.4 mg/dL (8.4-10.2) 07/30/19 07:00 Magnesium 2.00 mg/dL (1.7-2.3) 07/26/19 18:53 Urine Creatinine 167.4 mg/dL (0.1-20.0) H 07/26/19 19:34 Urine Sodium 38 mmol/L 07/26/19 19:34 Medications & Allergies - Medications Allergies/Adverse Reactions: Allergies No Known Allergies Allergy (Unverified 05/16/16 08:15) Home Medications: Home Medications Medication Instructions Recorded Confirmed Last Taken Type Aspirin [Aspirin BABY CHEW TAB] 81 mg PO QDAY 07/29/19 07/29/19 Unknown History Carvedilol [Coreg] 25 mg PO BID 07/29/19 07/29/19 Unknown History Furosemide [Lasix TAB] 1 tab PO BID 07/29/19 07/29/19 Unknown History Lisinopril [Zestril TAB] 40 mg PO QDAY 07/29/19 07/29/19 Unknown History NIFEdipine [Nifedipine ER] 60 mg PO DAILY 07/29/19 07/29/19 Unknown History Nitroglycerin [Nitrostat] 0.4 mg SL Q5M PRN 07/29/19 07/29/19 Unknown History Potassium Chloride [K-Dur] 1 tab PO DAILY 07/29/19 07/29/19 Unknown History Active Medications: Generic Name Dose Route Start Last Admin Trade Name Freq PRN Reason Stop Dose Admin Acetaminophen 650 mg 07/26/19 20:43 07/29/19 22:08 Tylenol PO 650 mg Q4H PRN Administration Pain MILD(1-3)/Fever >100.5/FLOOD Amlodipine Besylate 5 mg 07/27/19 15:00 07/29/19 10:03 Norvasc PO 5 mg QDAY ELSA Administration Aspirin 325 mg 07/27/19 10:00 07/29/19 10:03 Aspirin PO 325 mg QDAY ELSA Administration Cefazolin Sodium 2 gm/ Sodium 100 mls @ 200 mls/hr 07/29/19 14:00 07/30/19 05:26 Chloride IV 200 mls/hr Q8HR ELSA Administration Protocol Clindamycin HCl 900 mg in 50 mls @ 100 mls/hr 07/29/19 14:00 07/30/19 05:26 Cleocin 900 Mg/50 Ml IV 100 mls/hr Q8HR ELSA Administration Protocol Vancomycin HCl 2,000 mg/ 540 mls @ 250 mls/hr 07/29/19 12:00 07/29/19 12:49 Sodium Chloride IV 250 mls/hr Q24HR@1200 ELSA Administration Lorazepam 1 mg 07/28/19 13:48 07/28/19 23:39 Ativan IV 1 mg Q4H PRN Administration Agitation Nitroglycerin 0.5 inch 07/27/19 06:00 07/29/19 18:15 Nitro-Bid 2% TP Not Given QIDNTG [facility] Protocol Ondansetron HCl 4 mg 07/26/19 20:43 Zofran IV Q6H PRN Nausea And Vomiting Oxycodone/Acetaminophen 1 tab 07/28/19 13:28 07/30/19 05:36 Percocet 5/325 PO 1 tab Q6H PRN Administration Pain, Moderate (4-6) Sodium Chloride 10 ml 07/26/19 22:00 07/29/19 21:58 Sodium Chloride Flush Syringe 10 Ml IV 10 ml BID ELSA Administration Sodium Chloride 10 ml 07/26/19 20:43 Sodium Chloride Flush Syringe 10 Ml IV PRN PRN LINE FLUSH
[2019-07-30] MEDS: NITROGLYCERIN 2% OINT 1 GM TP SCH ×4 (10:21→18:00)
[2019-07-30] MEDS: amLODIPine 5 MG TAB PO SCH (10:23)
[2019-07-30] MEDS: ASPIRIN 325 MG TAB PO SCH (11:14)
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
[2019-07-30 11:55] LABS: Hematocrit 33.9 % (35.5-45.6); Hemoglobin 11.2 gm/dl (11.8-15.2); Mean Corpuscular HGB Conc 33 % (32-34); Mean Corpuscular Volume 93 fl (84-94); Platelet Count 179 K/mm3 (140-440); Red Blood Count 3.66 M/mm3 (3.65-5.03); Red Cell Distribution Width 14.3 % (13.2-15.2)
[2019-07-30] MEDS: VANCOMYCIN 2,000 MG in SODIUM CHLORIDE 0.9% 500 ML 500 ML IV SCH (13:00)
[2019-07-30 13:40] LABS: Band Neutrophils # (Manual) 0.2 K/mm3; Basophils % (Manual) 0 % (0.0-1.8); Eosinophils % (Manual) 0 % (0.0-4.3); Total Cells Counted 100
[2019-07-30 13:46] LABS: RBC Morphology Normal
[2019-07-30 13:47] LABS: Platelet Estimate Consistent w Auto
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
[2019-07-30] MEDS: ACETAMINOPHEN 325 MG TAB PO PRN (18:37)
[2019-07-30] MEDS ORDERED: hydrALAZINE 20 MG/1 ML INJ IV PRN (21:46)
[2019-07-31 05:18] LABS: Hematocrit 32.4 % (35.5-45.6); Hemoglobin 10.7 gm/dl (11.8-15.2); Mean Corpuscular HGB Conc 33 % (32-34); Mean Corpuscular Volume 93 fl (84-94); Platelet Count 205 K/mm3 (140-440); Red Blood Count 3.48 M/mm3 (3.65-5.03); Red Cell Distribution Width 14.4 % (13.2-15.2)
[2019-07-31 06:09] LABS: Calcium 8.6 mg/dL (8.4-10.2)
[2019-07-31] MEDS: NITROGLYCERIN 2% OINT 1 GM TP SCH ×3 (06:38→16:25)
[2019-07-31] MEDS: oxyCODONE /ACETAMINOPHEN 5-325MG TAB PO PRN ×2 (06:45→12:59)
[2019-07-31] MEDS: ASPIRIN 325 MG TAB PO SCH (09:09)
[2019-07-31] MEDS: amLODIPine 5 MG TAB PO SCH (09:09)
--- NOTE | 2019-07-31 09:17 | Progress Note ---
Assessment and Plan - Patient Problems (1) SHAUNA (acute kidney injury) Current Visit: Yes Status: Acute Plan to address problem: SHAUNA is most likely secondary to pre-renal azotemia in the setting of LLE cellulitis. FeNA < 1%. renal function improved on IVF, now d/jose. Renal US ruled out obstructive nephropathy and other structural disease. Avoid further nephrotoxins, NSAIDs, IV contrast. (2) Cellulitis and abscess of left leg Current Visit: Yes Status: Acute Plan to address problem: cont IV ABXs as per ID recommendations. awaiting surgery eval to rule out necrotizing fasciitis. (3) Hypokalemia Current Visit: Yes Status: Acute Plan to address problem: K supplementation with KDur (4) Essential (primary) hypertension Current Visit: Yes Status: Acute Plan to address problem: will start amlodipine 5mg po qd for BP control Subjective Date of service: 07/31/19 Principal diagnosis: cellulitis Interval history: Patient is awake, alert, in no acute distress Objective - Vital Signs Vital signs: Vital Signs - 12hr 07/30/19 07/31/19 07/31/19 22:14 00:49 06:17 Temperature 98.4 F 97.5 F L Pulse Rate 82 86 92 H Respiratory 27 H 22 Rate Blood Pressure 187/85 180/87 156/98 Blood Pressure [Right] O2 Sat by Pulse 95 96 Oximetry 07/31/19 07/31/19 07/31/19 06:38 06:43 09:09 Temperature 97.8 F Pulse Rate 92 H 91 H Respiratory 24 Rate Blood Pressure 156/98 156/98 Blood Pressure 156/98 [Right] O2 Sat by Pulse 100 Oximetry - General Appearance General appearance: well-developed, well-nourished, appears stated age EENT: ATNC, PERRL, mucous membranes moist Neck: no JVD Respiratory: Present: Clear to Ascultation Cardiology: regular, S1S2 Gastrointestinal: normoactive bowel sounds Integumentary: erythema, other (LLE edema, erythema ) Neurologic: no focal deficit, alert and oriented x3, strength 5/5, CN 3-12 intact Psychiatric: mood/affect appropriate, cooperative - Lab 07/31/19 04:01 07/31/19 04:01 Most recent lab results Calcium 8.6 mg/dL (8.4-10.2) 07/31/19 04:01 Magnesium 2.00 mg/dL (1.7-2.3) 07/26/19 18:53 Urine Creatinine 167.4 mg/dL (0.1-20.0) H 07/26/19 19:34 Urine Sodium 38 mmol/L 07/26/19 19:34 Medications & Allergies - Medications Allergies/Adverse Reactions: Allergies No Known Allergies Allergy (Unverified 05/16/16 08:15) Home Medications: Home Medications Medication Instructions Recorded Confirmed Last Taken Type Aspirin [Aspirin BABY CHEW TAB] 81 mg PO QDAY 07/29/19 07/29/19 Unknown History Carvedilol [Coreg] 25 mg PO BID 07/29/19 07/29/19 Unknown History Furosemide [Lasix TAB] 1 tab PO BID 07/29/19 07/29/19 Unknown History Lisinopril [Zestril TAB] 40 mg PO QDAY 07/29/19 07/29/19 Unknown History NIFEdipine [Nifedipine ER] 60 mg PO DAILY 07/29/19 07/29/19 Unknown History Nitroglycerin [Nitrostat] 0.4 mg SL Q5M PRN 07/29/19 07/29/19 Unknown History Potassium Chloride [K-Dur] 1 tab PO DAILY 07/29/19 07/29/19 Unknown History Active Medications: Generic Name Dose Route Start Last Admin Trade Name Freq PRN Reason Stop Dose Admin Acetaminophen 650 mg 07/26/19 20:43 07/30/19 18:37 Tylenol PO 650 mg Q4H PRN Administration Pain MILD(1-3)/Fever >100.5/FLOOD Amlodipine Besylate 5 mg 07/27/19 15:00 07/31/19 09:09 Norvasc PO 5 mg QDAY ELSA Administration Aspirin 325 mg 07/27/19 10:00 07/31/19 09:09 Aspirin PO 325 mg QDAY ELSA Administration Hydralazine HCl 5 mg 07/30/19 21:46 07/30/19 22:14 Apresoline IV 5 mg Q6HR PRN Administration Hypertension Cefazolin Sodium 2 gm/ Sodium 100 mls @ 200 mls/hr 07/29/19 14:00 07/31/19 06:36 Chloride IV 200 mls/hr Q8HR ELSA Administration Protocol Clindamycin HCl 900 mg in 50 mls @ 100 mls/hr 07/29/19 14:00 07/31/19 06:36 Cleocin 900 Mg/50 Ml IV 100 mls/hr Q8HR ELSA Administration Protocol Vancomycin HCl 2,000 mg/ 540 mls @ 250 mls/hr 07/29/19 12:00 07/30/19 13:00 Sodium Chloride IV 250 mls/hr Q24HR@1200 ELSA Administration Lorazepam 1 mg 07/28/19 13:48 07/28/19 23:39 Ativan IV 1 mg Q4H PRN Administration Agitation Nitroglycerin 0.5 inch 07/27/19 06:00 07/31/19 06:38 Nitro-Bid 2% TP Not Given QIDNTG [facility] Protocol Ondansetron HCl 4 mg 07/26/19 20:43 Zofran IV Q6H PRN Nausea And Vomiting Oxycodone/Acetaminophen 1 tab 07/28/19 13:28 07/31/19 06:45 Percocet 5/325 PO 1 tab Q6H PRN Administration Pain, Moderate (4-6) Sodium Chloride 10 ml 07/26/19 22:00 07/31/19 09:14 Sodium Chloride Flush Syringe 10 Ml IV 10 ml BID ELSA Administration Sodium Chloride 10 ml 07/26/19 20:43 Sodium Chloride Flush Syringe 10 Ml IV PRN PRN LINE FLUSH
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
[2019-07-31] MEDS ORDERED: POTASSIUM CHLORIDE ER 20 MEQ TAB PO ONE (11:00)
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
[2019-07-31] MEDS: VANCOMYCIN 2,000 MG in SODIUM CHLORIDE 0.9% 500 ML 500 ML IV SCH (12:59)
[2019-08-01] MEDS: oxyCODONE /ACETAMINOPHEN 5-325MG TAB PO PRN (02:12)
[2019-08-01 05:20] LABS: Hematocrit 31.6 % (35.5-45.6); Hemoglobin 10.4 gm/dl (11.8-15.2); Mean Corpuscular HGB Conc 33 % (32-34); Mean Corpuscular Volume 93 fl (84-94); Platelet Count 228 K/mm3 (140-440); Red Blood Count 3.38 M/mm3 (3.65-5.03); Red Cell Distribution Width 14.5 % (13.2-15.2)
[2019-08-01] MEDS: NITROGLYCERIN 2% OINT 1 GM TP SCH ×3 (05:29→15:45)
[2019-08-01 05:39] LABS: Calcium 8.5 mg/dL (8.4-10.2)
[2019-08-01] MEDS ORDERED: VANCOMYCIN 2,000 MG in SODIUM CHLORIDE 0.9% 500 ML 500 ML IV SCH (06:00)
[2019-08-01] MEDS: ASPIRIN 325 MG TAB PO SCH (09:36)
[2019-08-01] MEDS: amLODIPine 5 MG TAB PO SCH (09:36)
--- NOTE | 2019-08-01 11:46 | Progress Note ---
Assessment and Plan 64 yo M with 1. LLE cellulitis 2. leukocytosis - improving Plan: 1. continue elevation on 3-4 pillows 2. continue offloading 3. continue abx as per ID 4. prn pain control 5. WBC improving and patient remains afebrile. 6. Keep leg open to air Continue current management as above. Based on the patient's clinical history, physical exam, and CT scan findings, I do not feel the patient has a necrotizing soft tissue infection/necrotizing fasciitis. The skin is intact without open wounds or necrosis, and there is no creptius or air in the subcuatenous tissue on imaging which would indicate necrotizing infection. No abscess or drainable fluid collections. No plans for surgical intervention as patient is improving. He may be discharged home with abx per ID. Pt instructed to keep leg elevated and to avoid picking at skin or in between toes. He may follow up in surgery clinic in 2 weeks D/W Dr. Cobos. Thank you, please call with questions Subjective Date of service: 08/01/19 Narrative: Patient seen and examined. He sitting up in a chair with his legs elevated. He has no complaints. He states that the pain and swelling has improved further today. He feels well. No fevers, chills. He Objective Vital Signs - 12hr 08/01/19 08/01/19 08/01/19 04:43 05:29 09:36 Temperature 98.7 F Pulse Rate 93 H 93 H 91 H Respiratory 20 Rate Blood Pressure 140/69 140/69 165/97 O2 Sat by Pulse 96 Oximetry 08/01/19 09:39 Temperature Pulse Rate 91 H Respiratory Rate Blood Pressure 165/97 O2 Sat by Pulse Oximetry - General physical appearance Narrative Exam: General: Awake, alert, oriented 3. No apparent distress. CV: S1, S2 present Respiratory: No wheezes Extremities: Left lower extremity erythema mildly improved, swelling mildly improved. Very mild tenderness to palpation of the lower extremity. All compartments are soft. No crepitus - Labs 08/01/19 04:27 08/01/19 04:27 Diabetes panel 08/01/19 Range/Units 04:27 Sodium 140 (137-145) mmol/L Potassium 3.9 (3.6-5.0) mmol/L Chloride 99.5 (98-107) mmol/L Carbon Dioxide 28 (22-30) mmol/L BUN 18 (9-20) mg/dL Creatinine 1.4 (0.8-1.5) mg/dL Glucose 120 H (75-100) mg/dL Calcium 8.5 (8.4-10.2) mg/dL Calcium panel 08/01/19 Range/Units 04:27 Calcium 8.5 (8.4-10.2) mg/dL Pituitary panel 08/01/19 Range/Units 04:27 Sodium 140 (137-145) mmol/L Potassium 3.9 (3.6-5.0) mmol/L Chloride 99.5 (98-107) mmol/L Carbon Dioxide 28 (22-30) mmol/L BUN 18 (9-20) mg/dL Creatinine 1.4 (0.8-1.5) mg/dL Glucose 120 H (75-100) mg/dL Calcium 8.5 (8.4-10.2) mg/dL Adrenal panel 08/01/19 Range/Units 04:27 Sodium 140 (137-145) mmol/L Potassium 3.9 (3.6-5.0) mmol/L Chloride 99.5 (98-107) mmol/L Carbon Dioxide 28 (22-30) mmol/L BUN 18 (9-20) mg/dL Creatinine 1.4 (0.8-1.5) mg/dL Glucose 120 H (75-100) mg/dL Calcium 8.5 (8.4-10.2) mg/dL
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
--- NOTE | 2019-08-01 12:43 | Progress Note ---
Assessment and Plan - Patient Problems (1) SHAUNA (acute kidney injury) Current Visit: Yes Status: Acute Plan to address problem: SHAUNA is most likely secondary to pre-renal azotemia in the setting of LLE cellulitis. FeNA < 1%. renal function improved on IVF, now d/jose. Renal US ruled out obstructive nephropathy and other structural disease. Avoid further nephrotoxins, NSAIDs, IV contrast. stable for discharge from renal stand point (2) Cellulitis and abscess of left leg Current Visit: Yes Status: Acute Plan to address problem: cont IV ABXs as per ID recommendations. awaiting surgery eval to rule out necrotizing fasciitis. (3) Hypokalemia Current Visit: Yes Status: Acute Plan to address problem: K supplementation with KDur (4) Essential (primary) hypertension Current Visit: Yes Status: Acute Plan to address problem: will start amlodipine 5mg po qd for BP control Subjective Date of service: 08/01/19 Principal diagnosis: cellulitis Interval history: Patient is awake, alert, in no acute distress Objective - Vital Signs Vital signs: Vital Signs - 12hr 08/01/19 08/01/19 08/01/19 04:43 05:29 09:36 Temperature 98.7 F Pulse Rate 93 H 93 H 91 H Respiratory 20 Rate Blood Pressure 140/69 140/69 165/97 O2 Sat by Pulse 96 Oximetry 08/01/19 09:39 Temperature Pulse Rate 91 H Respiratory Rate Blood Pressure 165/97 O2 Sat by Pulse Oximetry - General Appearance General appearance: well-developed, well-nourished, appears stated age EENT: ATNC, PERRL, mucous membranes moist Neck: no JVD Respiratory: Present: Clear to Ascultation Cardiology: regular, S1S2 Gastrointestinal: normoactive bowel sounds Integumentary: no rash, other (LLE edema, erythema ) Neurologic: no focal deficit, alert and oriented x3, strength 5/5, CN 3-12 intact Psychiatric: mood/affect appropriate, cooperative - Lab 08/01/19 04:27 08/01/19 04:27 Most recent lab results Calcium 8.5 mg/dL (8.4-10.2) 08/01/19 04:27 Magnesium 2.00 mg/dL (1.7-2.3) 07/26/19 18:53 Urine Creatinine 167.4 mg/dL (0.1-20.0) H 07/26/19 19:34 Urine Sodium 38 mmol/L 07/26/19 19:34 Medications & Allergies - Medications Allergies/Adverse Reactions: Allergies No Known Allergies Allergy (Unverified 05/16/16 08:15) Home Medications: Home Medications Medication Instructions Recorded Confirmed Last Taken Type Aspirin [Aspirin BABY CHEW TAB] 81 mg PO QDAY 07/29/19 07/29/19 Unknown History Carvedilol [Coreg] 25 mg PO BID 07/29/19 07/29/19 Unknown History Furosemide [Lasix TAB] 1 tab PO BID 07/29/19 07/29/19 Unknown History NIFEdipine [Nifedipine ER] 60 mg PO DAILY 07/29/19 07/29/19 Unknown History Nitroglycerin [Nitrostat] 0.4 mg SL Q5M PRN 07/29/19 07/29/19 Unknown History Potassium Chloride [K-Dur] 1 tab PO DAILY 07/29/19 07/29/19 Unknown History Sulfamethoxazole/Trimethoprim 1 each PO BID #28 tablet 08/01/19 Unknown Rx [Bactrim DS TAB] cefUROXime [Ceftin] 500 mg PO Q12H #56 tablet 08/01/19 Unknown Rx oxyCODONE /ACETAMINOPHEN [Percocet 1 tab PO Q6H PRN #10 tablet 08/01/19 Unknown Rx 5/325 mg] Active Medications: Generic Name Dose Route Start Last Admin Trade Name Freq PRN Reason Stop Dose Admin Acetaminophen 650 mg 07/26/19 20:43 07/30/19 18:37 Tylenol PO 650 mg Q4H PRN Administration Pain MILD(1-3)/Fever >100.5/FLOOD Amlodipine Besylate 5 mg 07/27/19 15:00 08/01/19 09:36 Norvasc PO 5 mg QDAY ELSA Administration Aspirin 325 mg 07/27/19 10:00 08/01/19 09:36 Aspirin PO 325 mg QDAY ELSA Administration Hydralazine HCl 5 mg 07/30/19 21:46 07/30/19 22:14 Apresoline IV 5 mg Q6HR PRN Administration Hypertension Cefazolin Sodium 2 gm/ Sodium 100 mls @ 200 mls/hr 07/29/19 14:00 08/01/19 05:26 Chloride IV 200 mls/hr Q8HR ELSA Administration Protocol Clindamycin HCl 900 mg in 50 mls @ 100 mls/hr 07/29/19 14:00 08/01/19 05:26 Cleocin 900 Mg/50 Ml IV 100 mls/hr Q8HR ELSA Administration Protocol Vancomycin HCl 2,000 mg/ 540 mls @ 250 mls/hr 08/01/19 06:00 08/01/19 05:27 Sodium Chloride IV 250 mls/hr Q12H ELSA Administration Lorazepam 1 mg 07/28/19 13:48 07/28/19 23:39 Ativan IV 1 mg Q4H PRN Administration Agitation Nitroglycerin 0.5 inch 07/27/19 06:00 08/01/19 09:39 Nitro-Bid 2% TP Not Given [facility]IDNTG [facility] Protocol Ondansetron HCl 4 mg 07/26/19 20:43 Zofran IV Q6H PRN Nausea And Vomiting Oxycodone/Acetaminophen 1 tab 07/28/19 13:28 08/01/19 02:12 Percocet 5/325 PO 1 tab Q6H PRN Administration Pain, Moderate (4-6) Sodium Chloride 10 ml 07/26/19 22:00 08/01/19 09:39 Sodium Chloride Flush Syringe 10 Ml IV 10 ml BID ELSA Administration Sodium Chloride 10 ml 07/26/19 20:43 Sodium Chloride Flush Syringe 10 Ml IV PRN PRN LINE FLUSH
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
[2019-08-01 15:35] VITALS: BP 168/80
[2019-08-01] MEDS ORDERED: SULFAMETHOXAZOLE/TRIMETHOPRIM 800/160MG DS TAB PO SCH (22:00)
== END 2019-08-01 19:50 | disposition home health service (06) | DRG 871 ==
LOC: ED 16:04 → 4A 20:43 → 3A 07-27 15:09
PROVIDERS: ADMIT Internal Medicine; ATTEND Internal Medicine
DX: A41.50 Gram-negative sepsis, unspecified (principal); N17.0 Acute kidney failure with tubular necrosis; I21.4 Non-ST elevation (NSTEMI) myocardial infarction; M94.0 Chondrocostal junction syndrome [Tietze]; L03.116 Cellulitis of left lower limb; E87.6 Hypokalemia; F10.10 Alcohol abuse, uncomplicated; I25.10 Atherosclerotic heart disease of native coronary artery without angina pectoris; D69.6 Thrombocytopenia, unspecified; I10 Essential (primary) hypertension; I25.2 Old myocardial infarction; Z82.49 Family history of ischemic heart disease and other diseases of the circulatory system
CPT/HCPCS: 36415; 71045; 76770; 78582; 80048; 80053; 80061; 80202; 80307; 81001; 82140; 82550; 82553; 82570; 83735; 83935; 84300; 84443; 84484; 84550; 85007; 85014; 85018; 85025; 85027; 85049; 85379; 85520; 85610; 85730; 87040; 87086; 87116; 93005; 93010; 93306; 94760; 96365; 96375; G0378; A9540; A9558; J0295; J0360; J0690; J1170; J1644; J2060; J2270; J2405; J3370; J3480; J7030; J7040

== ENCOUNTER 2020-07-07 12:06 | Emergency (ER) | payer MEDICAID, OTHER ==
[2020-07-07] MEDS ORDERED: ASPIRIN 325 MG TAB PO ONE (12:24)
--- NOTE | 2020-07-07 12:52 | XRay Report ---
CHEST 2 VIEWS INDICATION: Chest Pain. COMPARISON: 07/26/2019. FINDINGS: Support devices: None. Heart: Within normal limits. Lungs/Pleura: No acute air space or interstitial disease. No significant pleural effusion. IMPRESSION: No acute findings. Signer Name: Grayson Shell MD Signed: 07/07/2020 12:47 PM Workstation Name: [id number]
--- NOTE | 2020-07-07 13:10 | Emergency Department Report ---
HPI - General Chief Complaint: High BP Time Seen by Provider: 07/07/20 12:56 - HPI HPI: 65-year-old -A[place]ij[place] male presents to the emergency department with a complaint of a few days of bilateral lower extremity swelling, and the complaint of uncontrolled blood pressure. He has a past medical history of CHF, coronary artery disease with previous [place] but without cardiac stents, hypertension. He follows with a nurse practitioner, Viola Gregorio, for his primary care needs. The patient has been taking his Lasix 20 mg daily compliantly but says he has run out of some of his other medications including his blood pressure medications. He denies any chest pain, orthopnea, shortness of breath, back pain, fever. Patient also denies any skin color change, rash, warmth to the legs. 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 No recent travel or sick contacts at home. ED Past Medical Hx - Past Medical History Hx Hypertension: Yes Hx Heart Attack/AMI: Yes Hx Congestive Heart Failure: Yes Hx Diabetes: No Hx Asthma: No Hx COPD: No - Surgical History Past Surgical History?: Yes Additional Surgical History: leg - Social History Smoking Status: Current Every Day Smoker - Medications Home Medications: Home Medications Medication Instructions Recorded Confirmed Last Taken Type Aspirin [Aspirin BABY CHEW TAB] 81 mg PO QDAY 07/29/19 07/29/19 Unknown History Furosemide [Lasix TAB] 1 tab PO BID 07/29/19 07/29/19 Unknown History NIFEdipine [Nifedipine ER] 60 mg PO DAILY 07/29/19 07/29/19 Unknown History Nitroglycerin [Nitrostat] 0.4 mg SL Q5M PRN 07/29/19 07/29/19 Unknown History Potassium Chloride [K-Dur] 1 tab PO DAILY 07/29/19 07/29/19 Unknown History carvediloL [Coreg] 25 mg PO BID 07/29/19 07/29/19 Unknown History Sulfamethoxazole/Trimethoprim 1 each PO BID #28 tablet 08/01/19 Unknown Rx [Bactrim DS TAB] cefUROXime [Ceftin] 500 mg PO Q12H #56 tablet 08/01/19 Unknown Rx oxyCODONE /ACETAMINOPHEN [Percocet 1 tab PO Q6H PRN #10 tablet 08/01/19 Unknown Rx 5/325 mg] ED Review of Systems ROS: Stated complaint: LEG PAIN Other details as noted in HPI Comment: All other systems reviewed and negative Constitutional: denies: chills, fever Eyes: denies: eye pain, vision change ENT: denies: ear pain, throat pain Respiratory: denies: cough, orthopnea, shortness of breath, SOB with exertion Cardiovascular: edema. denies: chest pain Gastrointestinal: denies: abdominal pain, vomiting Genitourinary: denies: dysuria, discharge Musculoskeletal: denies: back pain, arthralgia Skin: denies: rash, lesions Neurological: denies: headache, weakness Physical Exam - Physical Exam Vital Signs: Vital Signs 07/07/20 12:20 Temperature 98.2 F Pulse Rate 77 Respiratory 20 Rate Blood Pressure 206/116 O2 Sat by Pulse 96 Oximetry Physical Exam: GENERAL: The patient is well-developed well-nourished. HENT: Normocephalic. Atraumatic. Patient has moist mucous membranes. EYES: Extraocular motions are intact. NECK: Supple. Trachea is midline. CHEST/LUNGS: Clear to auscultation. There is no respiratory distress noted. HEART/CARDIOVASCULAR: Regular. There is no tachycardia. There is no murmur. ABDOMEN: Abdomen is soft, nontender. Patient has normal bowel sounds. SKIN: Skin is warm and dry. 1-2+ pitting edema to the bilateral lower extr emities from the knees down to the ankles. NEURO: The patient is awake, alert, and oriented. The patient is cooperative. The patient has no focal neurologic deficits. Normal speech. MUSCULOSKELETAL: There is no tenderness or deformity. There is no limitation range of motion. ED Course Vital Signs 07/07/20 12:20 Temperature 98.2 F Pulse Rate 77 Respiratory 20 Rate Blood Pressure 206/116 O2 Sat by Pulse 96 Oximetry ED Medical Decision Making - Lab Data Result diagrams: 07/07/20 12:48 07/07/20 12:48 - EKG Data -: EKG Interpreted by Me EKG shows normal: sinus rhythm (PACs), axis, intervals, QRS complexes (LVH), ST- T waves (T wave inversions to the lateral leads) Rate: normal - EKG Data When compared to previous EKG there are: no significant change Interpretation: unchanged when compared t (07/26/19) - Radiology Data Radiology results: report reviewed DUPLEX DOPPLER LOWER EXTREMITY VEINS, BILATERAL INDICATION: leg swelling and pain. TECHNIQUE: Duplex doppler imaging was performed through the veins of both lower extremities using venous compression and other maneuvers. COMPARISON: Left lower extremity venous ultrasound from 07/26/2019. FINDINGS: Right Common femoral vein: Negative. Right Superficial femoral vein: Negative. Right Popliteal vein: Negative. Right Calf veins: Negative. Left Common femoral vein: Negative. Left Superficial femoral vein: Negative. Left Popliteal vein: Negative. Left Calf veins: Negative. Additional findings: None.. IMPRESSION: 1. No sonographic evidence for DVT in either lower extremity. - Medical Decision Making This patient presents to the emergency department with a complaint of a few days of lower extremity swelling. He is currently on Lasix 20 mg and says he is compliant. The patient denies any chest pain, back pain, shortness of breath with or without exertion, orthopnea. On examination he has 1-2+ pitting edema the bilateral lower extremities from the knees distally to the ankles. There is no erythema, warmth, rash, lesions. Chest x-ray did not show any pleural effusions or any other acute process. Patient's lab shows mild renal insuffici ency, negative troponin, and an elevated BNP of about 900. He had bilateral lower extremity venous Doppler ultrasound that was negative for any DVT or any other acute processes. Patient does have some hypertension and was given a double dose of Lasix which should help with the diuresis and also help with his blood pressure. He showed me a blood pressure log he has been keeping and while it is still showing hypertension it is much more reasonable. Patient's vital signs been reassuring throughout his ED course including being afebrile. He did present with hypertension but it has come down to a more reasonable level and this is before he was given any Lasix or antihypertensive medication. For these reasons, as well as the fact that he does not have any chest pain or shortness of breath, I do not feel that patient requires admission at this time. He has good outpatient follow-up with his primary care physician. His contact information has been sent over to [facility] and someone from the office should be contacting him shortly for close outpatient follow-up. The patient has been instructed to return to the emergency department with any worsening of his symptoms, development of chest pain or shortness of breath, or with any acute distress. He understands and agrees to the plan. Critical Care Time: No Critical care attestation.: If time is entered above; I have spent that time in minutes in the direct care of this critically ill patient, excluding procedure time. ED Disposition Clinical Impression: Bilateral lower extremity edema, CHF exacerbation, Hypertension Disposition: TO HOME OR SELFCARE Is pt being admited?: No Condition: Stable Instructions: Hypertension (ED), Heart Failure (ED) Additional Instructions: Please follow-up with your primary care physician in the next few days. Take your medications as prescribed. I am sending your contact information to the [facility] and someone from their office should be contacting you shortly for close outpatient follow-up. I am also giving you the outpatient referral for 1 of the cardiologists from that group, Dr. Mariee. Try to stay away from foods that are high in salt and caffeinated products. Keep a blood pressure log. Return to the emergency department with any worsening of your symptoms or with any acute distress. Referrals: VIOLA GREGORIO NP-C [Primary Care Provider] - 2-3 Days REJI MARIEE MD [Staff Physician] - 2-3 Days Time of Disposition: 15:30
[2020-07-07 13:21] LABS: Basophils % (Auto) 0.6 % (0.0-1.8); Eosinophils # (Auto) 0.1 K/mm3 (0.0-0.4); Eosinophils % (Auto) 1.7 % (0.0-4.3); Hematocrit 41.5 % (35.5-45.6); Hemoglobin 13.9 gm/dl (11.8-15.2); Lymphocytes # (Auto) 1.6 K/mm3 (1.2-5.4); Lymphocytes % (Auto) 30.6 % (13.4-35.0); Mean Corpuscular HGB Conc 34 % (32-34); Mean Corpuscular Volume 93 fl (84-94); Monocytes # (Auto) 0.4 K/mm3 (0.0-0.8); Monocytes % (Auto) 7.9 % (0.0-7.3); Platelet Count 177 K/mm3 (140-440); Red Blood Count 4.45 M/mm3 (3.65-5.03); Red Cell Distribution Width 13.1 % (13.2-15.2)
[2020-07-07 13:41] LABS: BUN/Creatinine Ratio 12; Blood Urea Nitrogen 17 mg/dL (9-20); Calcium 9.1 mg/dL (8.4-10.2); Hemolysis Index 3
[2020-07-07] MEDS ORDERED: FUROSEMIDE 40 MG/4 ML INJ IV ONE (13:42)
[2020-07-07] MEDS ORDERED: POTASSIUM CHLORIDE ER 10 MEQ TAB PO ONE (14:00)
[2020-07-07] MEDS ORDERED: POTASSIUM CHLORIDE ER 20 MEQ TAB PO ONE (14:13)
--- NOTE | 2020-07-07 15:24 | Vascular Lab Report ---
DUPLEX DOPPLER LOWER EXTREMITY VEINS, BILATERAL INDICATION: leg swelling and pain. TECHNIQUE: Duplex doppler imaging was performed through the veins of both lower extremities using venous andressa je and other maneuvers. COMPARISON: Left lower extremity venous ultrasound from 07/26/2019. FINDINGS: Right Common femoral vein: Negative. Right Superficial femoral vein: Negative. Right Popliteal vein: Negative. Right Calf veins: Negative. Left Common femoral vein: Negative. Left Superficial femoral vein: Negative. Left Popliteal vein: Negative. Left Calf veins: Negative. Additional findings: None.. IMPRESSION: 1. No sonographic evidence for DVT in either lower extremity. Signer Name: Kareem Barros MD Signed: 07/07/2020 3:19 PM Workstation Name: [id number]
[2020-07-07 17:04] VITALS: BP 151/92
== END 2020-07-07 17:06 | disposition home or self-care (01) ==
LOC: ED 12:06
DX: I11.0 Hypertensive heart disease with heart failure (principal); I50.9 Heart failure, unspecified; I25.2 Old myocardial infarction; F17.200 Nicotine dependence, unspecified, uncomplicated; R60.0 Localized edema; Z79.899 Other long term (current) drug therapy
CPT/HCPCS: 36415; 71046; 80048; 83880; 84484; 85025; 93005; 93970; 96374; 99285; J1940